=== PATIENT | female | born 1955 | race Caucasian/White ===

== ENCOUNTER 2018-08-23 18:05 | Inpatient (IN) ==
[2018-08-23] MEDS ORDERED: Naloxone 0.4 MG/ML INJ IVP PRN (21:51)
[2018-08-23] MEDS ORDERED: Nitroglycerin 0.4 MG TAB.SUBL SL PRN (21:57)
[2018-08-23] MEDS ORDERED: 0.9 % Sodium Chloride 1,000 ML IVC SCH (22:00)
[2018-08-23 22:20] LABS: Basophils % 0.1 %; Hematocrit 40.7 % (35.3-44.9); Immature Granulocytes % 0.5 % (0-4); Lymphocytes % 5.6 %; Mean Corpuscular HGB Conc 31.9 g/dL (31.6-35.5); Mean Corpuscular Hemoglobin 30.2 pg (28.0-33.3); Mean Corpuscular Volume 94.7 fL (83.0-100.0); Mean Platelet Volume 11.3 fL (9.4-12.4); Monocytes % 0.1 %; Neutrophils # 16.8 K/mcL (1.6-8.9); Platelet Count 280 K/mcL (140-400); Red Cell Distribution Width 13.6 % (11.5-14.5); Segmented Neutrophils % 93.7 %
[2018-08-23 22:25] LABS: Heparin anti-factor XA UFH 0.16 IU/mL (0.30-0.70)
[2018-08-23] MEDS ORDERED: *HR* OxyCODONE/APAP 7.5/325 TABLET PO ONE (22:27)
--- NOTE | 2018-08-23 22:32 | Internal Med History&Physical ---
<Delmer Mancini - Last Filed: 08/23/18 23:56> Date of Encounter: 08/23/18 Time of Encounter: 10:00 Internal Medicine - H&P: HPI Chief complaint: Chest pain Admitted From: Hospital to Hospital Transfer Plans for Post Hospital Care: Home History of present illness: Ms. Garcia is a 62 year old female with history of COPD, hypertension, kidney cancer, hyperlipidemia, CAD status post angioplasty 2, chronic pain who presents to [facility] from [facility] due to chest pain. The patient states that she had chest pain at approximately 11:30 PM yesterday and lasted for approximately 2 hours. The patient was sitting on the toilet attempting have a bowel movement when the pain started. The pain was 10 out of 10 in intensity, left-sided and had radiation to the right neck and bilateral arms. In addition of this, the patient states that she had some numbness in her face associated with this as well. This pain was constant and unremitting. She denies any shortness of breath or palpitations associated with this, and also had no diaphoresis. She did attempt to take her in this time and did take 3 doses but this was not helpful. Nothing made this pain worse. She did move to the bathtub to try and take a bath which was not helpful, but she was able to lay in her bed shortly after which she felt was helpful. The patient has had cardiac history in the past requiring stents, however she said this felt worse than those times. Historically she has not had significant chest pain associated with her cardiac symptoms. Significantly, the patient has had a recent history of hematochezia which has been significant. She said that she was having abdominal cramping and pain and felt that maybe she was developing constipation so she took a laxative. She said that when she attempted to use the bathroom she had significant bright red blood per rectum in the toilet bowl which has been a constant occurrence. She says that she is being worked up by her primary care provider for this at this time. In addition, the patient says that she was recently seen by primary care for a cough with sputum production at which time she was given an antibiotic and prednisone for 1 week. She has no other acute complaints at this time. In the ED at [facility], the patient received labs which demonstrated potassium 4.9, serum creatinine 3.69, troponin 2.8 followed by 2.9. Her WBC was 19.9, hemoglobin 15.3. EKG was not significant for any acute ischemic changes. At that time she was also found to have a blood pressure of 60/40 and received 2 bags of saline which did improve her blood pressure prior to transfer. The patient was diagnosed with an STEMI and was placed on heparin drip and transferred to [facility] for further management. Family Hx noncontributory Past Med Surg Social Fam HX - Past Medical History Medical history: COPD, hypertension, myocardial infarction, osteoporosis, renal disease Psychiatric history: depression - Past Surgical History Surgical History: angioplasty/stent, hysterectomy Additional surgical history: LEFT NEPHRECTOMY - Social History Smoking Status: Current every day smoker Packs per day: 1 Smokeless Tobacco Status: No Alcohol use: none Drug use: none Internal Medicine - H&P: Meds 3 Allergy/AdvReac Type Severity Reaction Status Date / Time acetaminophen Allergy Hives Verified 08/23/18 22:25 [From Lorcet (hydrocodone)] hydrocodone Allergy Hives Verified 08/23/18 22:25 [From Lorcet (hydrocodone)] Iodinated Contrast- Oral and Allergy Difficulty Verified 08/23/18 22:25 IV Dye Breathing meperidine [From Demerol] Allergy Gastrointestinal Verified 08/23/18 22:25 Upset Midodrine Allergy Hives Verified 08/23/18 22:25 morphine Allergy Hives Verified 08/23/18 22:25 Penicillins Allergy Hives Verified 08/23/18 22:25 pseudoephedrine Allergy Hives Verified 08/23/18 22:25 [From Sudafed] sertraline [From Zoloft] Allergy Hives Verified 08/23/18 22:25 tramadol [From Ultram] Allergy Hives Verified 08/23/18 22:25 adhesive tape AdvReac Rash Verified 08/23/18 22:25 All Systems PM: A 10-system review of systems was performed and is negative for pertinent findings except as documented above in the HPI. Review of systems: Constitutional: Denies fevers, chills, weight loss, generalized fatigue Head/Neck: Denies UNDERWOOD, neck stiffness EENT: Denies vision changes/blurriness, rhinorrhea, congestion, sore throat CVS: Admits to chest pain. Denies palpitations, dyspnea on exertion, orthopnea , PND Pulm: Admits to chronic SOB, Cough, sputum production. GI: Admits to Hematochezia, adominal cramping. Denies nausea, vomiting, diarrhea , constipation, melena, hematemasis. : Denies dysuria, increased frequency, urgency, hematuria Heme: Denies ease of bleeding or bruising MSK: Admits to leg cramping. Denies joint pain, limited ROM. Skin: Denies rashes, ulcers, color changes Neuro: Denies UNDERWOOD, paresthesias, focal deficits, ataxia - Constitutional Vitals: Temp Pulse Resp BP Pulse Ox 98.1 F 93 20 90/81 94 08/23/18 21:20 08/23/18 21:20 08/23/18 21:20 08/23/18 21:20 08/23/18 21:20 Exam: Gen: Vitals noted. No acute distress. HEENT: Normocephalic, atraumatic Neck: Supple. No adenopathy. Cardiac: RRR, no murmur, +S1/S2 Pulmonary: Diffuse wheezes are heard, poor inspiratory effort. No superimposed rales. Abdomen: soft, nontender, no guarding Back: Nontender throughout. MSK: ROM intact, no joint swelling noted Extremities: no BLE edema, nontender calf, no cyanosis or clubbing Neuro: moves all extremities, no focal deficits. A&Ox3 Psych: Appropriate mood and behavior Internal Med - H&P Results - Labs CBC & Chem 7: 08/23/18 22:09 08/23/18 22:09 Labs: Short CBC 08/23/18 Range/Units 22:09 WBC 17.9 H (4.3-11.1) K/mcL Hgb 13.0 (11.5-15.4) g/dL Hct 40.7 (35.3-44.9) % Plt Count 280 (140-400) K/mcL Neutrophils # 16.8 H (1.6-8.9) K/mcL - Assessment and plan (1) NSTEMI (non-ST elevated myocardial infarction) Current Visit: Yes Status: Acute Assessment and plan: NSTEMI Presents with atypical chest pain unrelieved by nitroglycerin, elevated troponin 2.2 -> 2.4 -> 1.4 EKG does not demonstrate any dynamic ischemic changes Patient does have history of CAD status post 2 stents in 2004 She is currently on aspirin and Plavix 75 mg Currently not having any chest pain Plan -Continue Heparin drip -Spoke to watch crystal grinder, Dr. Cline, who recommended Brillinta load at 180mg, ASA, Metoprolol 12.5 BID and LHC in the AM -Echo in the AM -NPO at Midnight -Continuous cardiac monitoring (2) JEFF (acute kidney injury) Current Visit: Yes Status: Acute Assessment and plan: Acute kidney injury in solitary left kidney, Serum creatinine 3.69 -> 2.4 The patient states that she has no known history of elevated serum creatinine Says she continues to make urine, no urinary symptoms She did recieve 2L fluid in the ER We will continue maintenance fluids at this time, monitor BMP Consider nephrology consult in AM (3) COPD (chronic obstructive pulmonary disease) Current Visit: No Status: Chronic Assessment and plan: COPD without acute exacerbation We will continue patient's home meds Qualifiers: COPD type: chronic bronchitis Chronic bronchitis type: simple Qualified Code(s): J41.0 - Simple chronic bronchitis (4) Leukocytosis Current Visit: Yes Status: Acute Assessment and plan: Leukocytosis, etiology unknown No evidence of infection at this time Recently received prednisone for COPD exacerbation We will continue to monitor Qualifiers: Leukocytosis type: leukemoid reaction Qualified Code(s): D72.823 - Leukemoid reaction (5) DVT prophylaxis Current Visit: Yes Status: Acute Assessment and plan: On Heparin drip for NSTEMI - Time Spent With Patient Total time spent is greater than 50% in coordination of care (as documented) at patient's floor/unit and/or counseling patient: <MarylevoliveRosemary - Last Filed: 08/24/18 07:11> Date of Encounter: 08/23/18 Time of Encounter: 21:00 Internal Medicine - H&P: HPI History of present illness: Ms. Garcia is a 62 year old female All Systems PM: A 10-system review of systems was performed and is negative for pertinent findings except as documented above in the HPI. - Constitutional Vitals: Temp Pulse Resp BP Pulse Ox 97.9 F 97 22 123/74 94 08/24/18 06:56 08/24/18 06:56 08/24/18 06:56 08/24/18 06:56 08/24/18 06:56 Internal Med - H&P Results - Labs CBC & Chem 7: 08/23/18 22:09 08/23/18 22:09 Labs: Short CBC 08/23/18 Range/Units 22:09 WBC 17.9 H (4.3-11.1) K/mcL Hgb 13.0 (11.5-15.4) g/dL Hct 40.7 (35.3-44.9) % Plt Count 280 (140-400) K/mcL Neutrophils # 16.8 H (1.6-8.9) K/mcL BMP 08/23/18 22:09 Sodium 133 L Potassium 4.4 Chloride 104 Carbon Dioxide 17 L BUN 35 H Creatinine 2.41 H Glucose 205 H Calcium 8.5 L Cardiac Enzymes 08/23/18 08/24/18 Range/Units 22:09 06:14 Troponin I 1.45 H* 1.22 H* (< 0.04) ng/mL Liver Function 08/23/18 Range/Units 22:09 Total Bilirubin 0.5 (0.3-1.0) mg/dL AST 23 (13-39) Units/L ALT 12 (7-52) Units/L Alkaline Phosphatase 70 (34-104) Units/L Albumin 3.8 (3.5-5.7) g/dL - Impressions ITS Impressions Chest X-Ray 08/23/18 22:32 IMPRESSION: 1. Bibasilar pulmonary opacities are most concerning for atelectasis. Early pneumonia could have similar appearance. Recommend radiographic follow-up to complete resolution. 2. Borderline enlarged cardiomediastinal silhouette. D/ / Shola Tena MD / Shola Tena MD Interpreting Provider: Shola Tena MD - Assessment and plan (1) NSTEMI (non-ST elevated myocardial infarction) Current Visit: Yes Status: Acute (2) JEFF (acute kidney injury) Current Visit: Yes Status: Acute (3) COPD (chronic obstructive pulmonary disease) Current Visit: No Status: Chronic Qualifiers: COPD type: chronic bronchitis Chronic bronchitis type: simple Qualified Code(s): J41.0 - Simple chronic bronchitis (4) Leukocytosis Current Visit: Yes Status: Acute Qualifiers: Leukocytosis type: leukemoid reaction Qualified Code(s): D72.823 - Leukemoid reaction (5) DVT prophylaxis Current Visit: Yes Status: Acute - Time Spent With Patient Total time spent is greater than 50% in coordination of care (as documented) at patient's floor/unit and/or counseling patient: - Attending Attestation Patient seen and examined. Case discussed with resident. Agree with assessment and plan. Cardiology consulted with recommendation to load patient with purulent. We will monitor H&H for signs of bleed given patient's history.
[2018-08-23 22:44] LABS: Albumin 3.8 g/dL (3.5-5.7); Albumin/Globulin Ratio 1.5 (1.1-2.2); Bilirubin,Total 0.5 mg/dL (0.3-1.0); Calcium 8.5 mg/dL (8.6-10.3); Globulin 2.6 g/dL (2.4-3.5); Magnesium 1.7 mg/dL (1.6-2.6); Potassium 4.4 mEq/L (3.5-5.1); Total Protein 6.4 g/dL (6.4-8.9)
[2018-08-23 22:47] LABS: Troponin I 1.45 ng/mL (< 0.04)
[2018-08-23] MEDS ORDERED: Heparin 1,000 UNITS/500 mL IV.SOLN IVC ONE (22:51)
[2018-08-23] MEDS: 0.9 % Sodium Chloride 1,000 ML IVC SCH (22:53)
[2018-08-23] MEDS ORDERED: *HR* Heparin 5,000 UNIT/ML VIAL IVP PRN ×2 (23:05)
[2018-08-23] MEDS ORDERED: *HR* Heparin 5,000 UNIT/ML VIAL IVP ONE (23:05)
[2018-08-23] MEDS ORDERED: *HR* Ticagrelor 90 MG TABLET PO ONE (23:11)
[2018-08-23] MEDS ORDERED: Heparin 25,000 UNIT/500 ML D5W 25,000 UNIT/500 ML BAG IVC SCH (23:15)
[2018-08-23] MEDS ORDERED: Ipratropium/Albuterol Neb 3 ML IH PRN (23:34)
[2018-08-24] MEDS ORDERED: Benzonatate 100 MG CAPSULE PO PRN ×2 (04:12→15:15)
[2018-08-24] MEDS ORDERED: *HR* OxyCODONE/APAP 7.5/325 TABLET PO ONE (04:21)
[2018-08-24] MEDS: 0.9 % Sodium Chloride 1,000 ML IVC SCH (07:10)
[2018-08-24] MEDS ORDERED: Ipratropium/Albuterol Neb 3 ML IH PRN (07:54)
[2018-08-24] MEDS ORDERED: 0.9 % Sodium Chloride 1,000 ML IVC SCH (07:54)
[2018-08-24] MEDS ORDERED: Nitroglycerin 0.4 MG TAB.SUBL SL PRN (07:54)
[2018-08-24] MEDS ORDERED: Naloxone 0.4 MG/ML INJ IVP PRN (07:54)
[2018-08-24] MEDS ORDERED: *HR* Heparin 5,000 UNIT/ML VIAL IVP PRN ×2 (07:54)
--- NOTE | 2018-08-24 09:20 | Cardiology Consult Note ---
Date of Encounter: 08/24/18 Time of Encounter: 08:45 Assessment and Plan (1) NSTEMI (non-ST elevated myocardial infarction) Current Visit: Yes Status: Acute Elevated troponin up to 2.99 at [facility] and trending down. Currently pain free. H/o PCI. Left heart catheterization in 09/2013: Left main normal. LAD proximal 20% ISR. Circumflex normal. OM1 normal. RCA proximal 70% stenosis (DEANNE placed). On heparin gtt started last night. Recommend asa, statin, and bb. She was not taking GDMT for CAD at home. Unfortunately she continues to smoke. [facility] is recommended for further evaluation once stable from JEFF standpoint. LHC R /B/A including ANNE discussed and she is considering. Recommend nephrology consult. Check TTE. (2) JEFF (acute kidney injury) Current Visit: Yes Status: Acute Scr up to 3.6 (per H&P) at outside facility and 2.41. H/o renal cancer s/p nephrectomy. Recommend nephrology consult and ordering records from her PCP. (3) Leukocytosis Current Visit: Yes Status: Acute Noted leukocytosis, likely secondary to steroid use. Qualifiers: Leukocytosis type: unspecified Qualified Code(s): D72.829 - Elevated white blood cell count, unspecified Discussion w patient/family: The assessment and plan as outlined above was discussed with the patient and/or family members who expressed understanding and agreement. All questions were answered. Thank you for involving us in the care of your patient. Please call with any questions. History of Present Illness Consult date: 08/24/18 Requesting physician: Delmer Mancini Consult reason: NSTEMI Chief complaint: Chest pain with bowel movement History of present illness: Ms. Garcia is a 62 year old female with past medical history CAD s/p PCI in 2004 to the LAD and RCA in 2012, renal cancer s/p nephrectomy, CKD, COPD, HTN, HLD, and current tobacco use. She presents with c/o midsternal chest pain radiating to her bilateral arms and neck. C/o a pulling feeling in her right face. Family said she was slurring her speech. She took NTG with no relief. States that she took a warm bath with no relief. She was evaluated at [facility] and found to have elevated troponin at 2.99. It is also noted her initial blood pressure was 64/ 38 and slowly came up with IV fluid. Scr elevated up to 3.6, EKG unchanged from prior EKG. Baseline kidney function unknown, no prior record. On my exam she is pain free. She tolerated heparin gtt overnight with no recurrent bloody stool. She is noted to have a large hemorrhoid per nursing staff. Past Med Surg Social Fam HX - Past Medical History Medical history: COPD, coronary artery disease, hypertension, myocardial infarction, osteoporosis, renal disease Psychiatric history: depression - Past Surgical History Surgical History: angioplasty/stent, hysterectomy Additional surgical history: LEFT NEPHRECTOMY - Social History Smoking Status: Current every day smoker Packs per day: 1 Smokeless Tobacco Status: No Alcohol use: none Drug use: none Medications and Allergies 3 Allergy/AdvReac Type Severity Reaction Status Date / Time acetaminophen Allergy Hives Verified 08/23/18 22:25 [From Lorcet (hydrocodone)] hydrocodone Allergy Hives Verified 08/23/18 22:25 [From Lorcet (hydrocodone)] Iodinated Contrast- Oral and Allergy Difficulty Verified 08/23/18 22:25 IV Dye Breathing meperidine [From Demerol] Allergy Gastrointestinal Verified 08/23/18 22:25 Upset Midodrine Allergy Hives Verified 08/23/18 22:25 morphine Allergy Hives Verified 08/23/18 22:25 Penicillins Allergy Hives Verified 08/23/18 22:25 pseudoephedrine Allergy Hives Verified 08/23/18 22:25 [From Sudafed] sertraline [From Zoloft] Allergy Hives Verified 08/23/18 22:25 tramadol [From Ultram] Allergy Hives Verified 08/23/18 22:25 adhesive tape AdvReac Rash Verified 08/23/18 22:25 All Systems Review: The remainder of the systems were reviewed and are negative Physical Examination Vital Signs, Last 4 Hours Temp Pulse Resp BP Pulse Ox 08/24/18 06:56 97.9 F 97 22 123/74 94 General: Conversant, No Apparent Distress HEENT: Atraumatic, Normocephaly, Mucus Membranes Moist Neck: No JVD, Normal carotid pulses Cardiac: Reg Rate and Rhythm, Normal S1 and S2, No Murmur Lungs: Normal Breath Sounds, No Wheeze, Rales, Rhonchi Neuro: Alert and responsive, No focal deficits noted Abdomen: Soft, Non-Tender Skin: No rashes noted on visualized skin Musculoskeletal: No Chest Wall Tenderness Extremities: No Clubbing, No Cyanosis, No Edema, Normal Pulses Results 08/23/18 22:09 08/23/18 22:09 Lab Results 08/23/18 08/23/18 08/23/18 22:09 22:09 22:09 WBC 17.9 H Hgb 13.0 Hct 40.7 Plt Count 280 INR 1.0 Sodium 133 L Potassium 4.4 Chloride 104 Carbon Dioxide 17 L BUN 35 H Creatinine 2.41 H Glucose 205 H Calcium 8.5 L Magnesium 1.7 Total Bilirubin 0.5 AST 23 ALT 12 Alkaline Phosphatase 70 Troponin I 1.45 H* B-Natriuretic Peptide 08/23/18 08/24/18 22:09 06:14 WBC Hgb Hct Plt Count INR Sodium Potassium Chloride Carbon Dioxide BUN Creatinine Glucose Calcium Magnesium Total Bilirubin AST ALT Alkaline Phosphatase Troponin I 1.22 H* B-Natriuretic Peptide 30 - Imaging and Cardiology Chest Xray: report reviewed Echo: pending - EKG Interpretation EKG results cardiology: personally reviewed Consult Discharge Plan - Plan Referrals: Luis Felipe Huerta DO [Primary Care Provider] -
--- NOTE | 2018-08-24 09:39 | Internal Med Progress Note ---
<Jaycob Spence - Last Filed: 08/24/18 10:36> Hospitalist Progress Note - Encounter Date of Encounter: 08/24/18 Time of Encounter: 10:36 - Exam Vitals: Temp Pulse Resp BP Pulse Ox 97.9 F 97 22 123/74 94 08/24/18 06:56 08/24/18 06:56 08/24/18 06:56 08/24/18 06:56 08/24/18 06:56 Exam: Constitutional: well nourished, well developed female. no acute distress Head: Normocephalic, atraumatic Eyes: PERRL, EOMI, conjunctiva pink, sclera anicteric Neck: Supple, trachea midline, no lymphadenopathy Lungs: Diffuse wheezes. Nonlabored breathing. No rales, or rhonchi noted. Cardiac: RRR. No murmurs, clicks, or rubs noted. GI: Abdomen soft, mildly distended, nontender. Normoactive bowel sounds Extremities: Warm, radial pulses palpable and symmetrical. No cyanosis, pedal edema, or calf tenderness. Neuro: Alert and oriented 3. No focal deficits. Normal speech. Skin: Warm, dry, and intact. - Assessment and Plan (1) NSTEMI (non-ST elevated myocardial infarction) Current Visit: Yes Status: Acute (2) JEFF (acute kidney injury) Current Visit: Yes Status: Acute (3) COPD (chronic obstructive pulmonary disease) Current Visit: No Status: Chronic (4) Leukocytosis Current Visit: Yes Status: Acute (5) DVT prophylaxis Current Visit: Yes Status: Acute - Time Spent with Patient Total time spent is greater than 50% in coordination of care (as documented) at patient's floor/unit and/or counseling patient: Internal Medicine: Result - Labs CBC & Chem 7: 08/24/18 09:25 08/24/18 09:25 Labs: Short CBC 08/23/18 Range/Units 22:09 WBC 17.9 H (4.3-11.1) K/mcL Hgb 13.0 (11.5-15.4) g/dL Hct 40.7 (35.3-44.9) % Plt Count 280 (140-400) K/mcL Neutrophils # 16.8 H (1.6-8.9) K/mcL BMP 08/23/18 22:09 Sodium 133 L Potassium 4.4 Chloride 104 Carbon Dioxide 17 L BUN 35 H Creatinine 2.41 H Glucose 205 H Calcium 8.5 L Cardiac Enzymes 08/23/18 08/24/18 Range/Units 22:09 06:14 Troponin I 1.45 H* 1.22 H* (< 0.04) ng/mL Liver Function 08/23/18 Range/Units 22:09 Total Bilirubin 0.5 (0.3-1.0) mg/dL AST 23 (13-39) Units/L ALT 12 (7-52) Units/L Alkaline Phosphatase 70 (34-104) Units/L Albumin 3.8 (3.5-5.7) g/dL - ABG Interpretation ABG results: PT/INR, D-dimer PT 11.0 Seconds (9.4-12.1) 08/23/18 22:09 - Impressions Impressions Chest X-Ray 08/23/18 22:32 IMPRESSION: 1. Bibasilar pulmonary opacities are most concerning for atelectasis. Early pneumonia could have similar appearance. Recommend radiographic follow-up to complete resolution. 2. Borderline enlarged cardiomediastinal silhouette. D/ / Shola Tena MD / Shola Tena MD Interpreting Provider: Shola Tena MD Consult Discharge Plan - Plan Referrals: Luis Felipe Huerta DO [Primary Care Provider] - <Nitin Rocha - Last Filed: 08/24/18 13:19> Hospitalist Progress Note - Encounter Date of Encounter: 08/24/18 - Exam Vitals: Temp Pulse Resp BP Pulse Ox 97.9 F 98 21 146/95 94 08/24/18 06:56 08/24/18 11:27 08/24/18 11:27 08/24/18 11:27 08/24/18 06:56 - Assessment and Plan (1) NSTEMI (non-ST elevated myocardial infarction) Current Visit: Yes Status: Acute (2) JEFF (acute kidney injury) Current Visit: Yes Status: Acute (3) COPD (chronic obstructive pulmonary disease) Current Visit: No Status: Chronic (4) Leukocytosis Current Visit: Yes Status: Acute (5) DVT prophylaxis Current Visit: Yes Status: Acute - Time Spent with Patient Total time spent is greater than 50% in coordination of care (as documented) at patient's floor/unit and/or counseling patient: Internal Medicine: Result - Labs CBC & Chem 7: 08/24/18 09:25 08/24/18 09:25 Labs: Short CBC 08/23/18 08/24/18 Range/Units 22:09 09:25 WBC 17.9 H 16.8 H (4.3-11.1) K/mcL Hgb 13.0 12.4 (11.5-15.4) g/dL Hct 40.7 40.0 (35.3-44.9) % Plt Count 280 279 (140-400) K/mcL Neutrophils # 16.8 H 15.3 H (1.6-8.9) K/mcL BMP 08/23/18 08/24/18 22:09 09:25 Sodium 133 L 140 Potassium 4.4 4.8 Chloride 104 109 H Carbon Dioxide 17 L 22 L BUN 35 H 29 H Creatinine 2.41 H 1.72 H Glucose 205 H 136 H Calcium 8.5 L 8.6 Cardiac Enzymes 08/23/18 08/24/18 Range/Units 22:09 06:14 Troponin I 1.45 H* 1.22 H* (< 0.04) ng/mL Liver Function 08/23/18 Range/Units 22:09 Total Bilirubin 0.5 (0.3-1.0) mg/dL AST 23 (13-39) Units/L ALT 12 (7-52) Units/L Alkaline Phosphatase 70 (34-104) Units/L Albumin 3.8 (3.5-5.7) g/dL - ABG Interpretation ABG results: PT/INR, D-dimer PT 11.0 Seconds (9.4-12.1) 08/23/18 22:09 - Impressions Impressions Chest X-Ray 08/23/18 22:32 IMPRESSION: 1. Bibasilar pulmonary opacities are most concerning for atelectasis. Early pneumonia could have similar appearance. Recommend radiographic follow-up to complete resolution. 2. Borderline enlarged cardiomediastinal silhouette. D/ / Shola Tena MD / Shola Tena MD Interpreting Provider: Shola Tena MD - Attending Attestation I performed an independent interview and exam of this patient. I agree with the findings, assessment, and plan of Dr. Spence, internal medicine unpaid intern. This is a 62-year-old female with a history of urinary disease status post PTCI, renal cancer status post nephrectomy now with a single kidney, COPD, chronic kidney disease, hypertension. Ongoing smoker. Patient was admitted with a non- STEMI. She is also noted to be in acute renal failure for which he is receiving IV fluids and we are holding nephrotoxins. Hemodynamically stable and chest pain-free. She is on a heparin drip as well as a statin, aspirin and beta willie. We are awaiting improvement in her renal function prior to performing left heart catheterization. Nephrology has been consulted. Cardiology input is appreciated. Gen NAD, AAOx3 Neck supple Lung ctab ht rrr abd soft +BS, NT Ext no edema Neuro nonfocal <Jaycob Spence A - Last Filed: 08/24/18 10:36> (3) COPD (chronic obstructive pulmonary disease) Qualifiers: COPD type: chronic bronchitis Chronic bronchitis type: simple Qualified Code (s): J41.0 - Simple chronic bronchitis (4) Leukocytosis Qualifiers: Leukocytosis type: unspecified Qualified Code(s): D72.829 - Elevated white blood cell count, unspecified <Nitin Rocha R - Last Filed: 08/24/18 13:19> (3) COPD (chronic obstructive pulmonary disease) Qualifiers: COPD type: chronic bronchitis Chronic bronchitis type: simple Qualified Code (s): J41.0 - Simple chronic bronchitis (4) Leukocytosis Qualifiers: Leukocytosis type: unspecified Qualified Code(s): D72.829 - Elevated white blood cell count, unspecified
[2018-08-24 09:43] LABS: Basophils % 0.1 %; Hemoglobin 12.4 g/dL (11.5-15.4); Immature Granulocytes % 0.8 % (0-4); Lymphocytes # 0.8 K/mcL (0.6-4.6); Lymphocytes % 4.9 %; Mean Corpuscular Volume 96.6 fL (83.0-100.0); Mean Platelet Volume 11.3 fL (9.4-12.4); Monocytes # 0.5 K/mcL (0.0-1.3); Monocytes % 3.1 %; Neutrophils # 15.3 K/mcL (1.6-8.9); Platelet Count 279 K/mcL (140-400); Red Blood Count 4.14 M/mcL (3.82-4.97); Red Cell Distribution Width 13.9 % (11.5-14.5); Segmented Neutrophils % 91.1 %
[2018-08-24 09:57] LABS: Calcium 8.6 mg/dL (8.6-10.3); Potassium 4.8 mEq/L (3.5-5.1)
--- NOTE | 2018-08-24 15:03 | Nephrology Consult Note ---
<Katerina Guillory - Last Filed: 08/24/18 15:01> Date of Encounter: 08/24/18 Time of Encounter: 15:02 Assessment and Plan (1) JEFF (acute kidney injury) Status: Acute JEFF vs CKD, unsure of baseline, awaiting baseline labs from PCP. Avoid nephrotoxins. Continue IVF. If SCR and GFR improve, may possibley do LHC tomorrow, if labs worsen we will hold off. Will order mucomyst to start in AM. Serum and urine studies ordered. (2) NSTEMI (non-ST elevated myocardial infarction) Status: Acute Per cardio. (3) COPD (chronic obstructive pulmonary disease) Status: Chronic Per primary, Qualifiers: COPD type: chronic bronchitis Chronic bronchitis type: simple Qualified Code(s): J41.0 - Simple chronic bronchitis History of Present Illness - Reason for Consult Consult date: 08/24/18 Acute Kidney Injury, Chronic Kidney Disease - Chief Complaint chest pain - History of Present Illness Ms. Garcia is a 62 year old female who presented to ED with CP on Friday08/22/18. She took 3 doses of Nitro a home without relief. PMH: COPD, hypertension, solitary kidney, hyperlipidemia, CAD status post angioplasty. Pt does admit Dr. Huerta her PCP does trend GFR, but she is unsure where it is at this time. A request has been made to obtain baseline records. Scr has improved at 1.75 and GFR improved at 30. She does see a [facility] but she does not want to go back there. She does want to establish with [facility] on discharge. Pt admits to bright red bleeding from rectum, which "she does time to time". Denies bleeding now. H/H stable. Since baseline is unknown, I did order urine studies and a Retroperitoneal US. She lives at home with her son. She is 1/2 ppd smoker. No ETOH or illicit drug use. Past Med Surg Social Fam HX - Past Medical History Medical history: COPD, coronary artery disease, hypertension, myocardial infarction, osteoporosis, renal disease Psychiatric history: depression - Past Surgical History Surgical History: angioplasty/stent, hysterectomy Additional surgical history: LEFT NEPHRECTOMY - Social History Smoking Status: Current every day smoker Packs per day: 1 Smokeless Tobacco Status: No Alcohol use: none Drug use: none Medications and Allergies RX: Aspirin [Adult Aspirin] 81 mg PO DAILY 08/24/18 [History] RX: DULoxetine [Cymbalta] 30 mg PO BID 08/24/18 [History] RX: Fluticasone/Vilanterol [Breo Ellipta 100-25 Mcg INH] 1 puff IH DAILY 08/24/18 [History] RX: Gabapentin [Neurontin] 600 mg PO TID 08/24/18 [History] RX: Lisinopril [Zestril] 20 mg PO DAILY 08/24/18 [History] RX: Nitroglycerin [Nitrostat] 0.4 mg SL Q5M PRN 08/24/18 [History] RX: Pantoprazole Sodium [Protonix] 40 mg PO DAILY 08/24/18 [History] RX: Tizanidine HCl 4 mg PO TID 08/24/18 [History] RX: diazePAM [Valium] 10 mg PO BID 08/24/18 [History] Oxycodone HCl/Acetaminophen [Percocet 5-325 mg Tablet] 1 each PO 1-2XD PRN 2 Days #5 tablet 08/27/18 [Rx] RX: Isosorbide MONOnitrate (24 HR) [Imdur] 30 mg PO DAILY 30 Days #30 tab.er.24h 08/27/18 [Rx] RX: amLODIPine [Norvasc] 5 mg PO DAILY 30 Days #30 tablet 08/27/18 [Rx] Allergy/AdvReac Type Severity Reaction Status Date / Time acetaminophen Allergy Hives Verified 08/23/18 22:25 [From Lorcet (hydrocodone)] hydrocodone Allergy Hives Verified 08/23/18 22:25 [From Lorcet (hydrocodone)] Iodinated Contrast- Oral and Allergy Difficulty Verified 08/23/18 22:25 IV Dye Breathing meperidine [From Demerol] Allergy Gastrointestinal Verified 08/23/18 22:25 Upset Midodrine Allergy Hives Verified 08/23/18 22:25 morphine Allergy Hives Verified 08/23/18 22:25 Penicillins Allergy Hives Verified 08/23/18 22:25 pseudoephedrine Allergy Hives Verified 08/23/18 22:25 [From Sudafed] sertraline [From Zoloft] Allergy Hives Verified 08/23/18 22:25 tramadol [From Ultram] Allergy Hives Verified 08/23/18 22:25 adhesive tape AdvReac Rash Verified 08/23/18 22:25 Review of Systems All Systems review (narrative): The remainder of the systems are negative. Constitutional: fatigue, no chills, no fever(s), no night sweats Cardiovascular: no chest pain (at time of exam. ), no diaphoresis, no dyspnea, no orthopnea, no palpitations Respiratory: no cough, no hemoptysis Gastrointestinal: change in bowel habits, diarrhea, hematochezia, no nausea, no vomiting Exam - Vital Signs Vital signs: Initial Vital Signs Temp Pulse Resp BP Pulse Ox 98.1 F 93 20 90/81 94 08/23/18 21:20 08/23/18 21:20 08/23/18 21:20 08/23/18 21:20 08/23/18 21:20 Vital Signs - Last 8 Hours Temp Pulse Resp BP Pulse Ox 08/24/18 14:27 98.3 F 103 18 140/96 96 08/24/18 11:27 98 21 146/95 Intake and Output 08/23/18 08/24/18 08/24/18 23:59 07:59 15:59 Intake Total 44 / 44 1175 / 1175 0 / 0 Output Total 800 / 800 Balance 44 / 44 1175 / 1175 -800 / -800 Intake: IV Fluids 44 / 44 1175 / 1175 0 / 0 0.9 % Sodium Chloride 1,000 ML 44 / 44 1000 / 1000 @ 125 mls/hr IVC .Q8H [facility] Rx#: [id number] Heparin 25,000 UNIT/500 ML D5W 175 / 175 0 / 0 25,000 unit In 500 ml @ 14 UNIT /KG/HR 18.144 mls/hr IVC .Q24H [facility] Rx#:[id number] Output: Urine 800 / 800 Other: Weight 64.8 kg Blood Glucose* 191 - General Appearance General appearance: well-developed, well-nourished EENT: ATNC, hearing intact, vision intact Neck: supple Respiratory: clear Cardiology: no edema, normal S1, normal S2 Gastrointestinal: normoactive bowel sounds, no tenderness, no guarding Integumentary: no rash, warm and dry Neurologic: alert and oriented x3 Psychiatric: mood/affect appropriate, cooperative Results - Lab Results 08/24/18 09:25 08/24/18 09:25 Most recent lab results Calcium 8.6 mg/dL (8.6-10.3) 08/24/18 09:25 Magnesium 1.7 mg/dL (1.6-2.6) 08/23/18 22:09 Consult Discharge Plan - Plan Instructions: Amlodipine (By mouth), Isosorbide Mononitrate (By mouth), Myocardial Infarction (DC), Left Heart Catheterization (DC) Referrals: Luis Felipe Huerta DO [Primary Care Provider] - 09/02/18 1:30 pm Bryon An DO [Partnered Physician] - Prescriptions: RX: amLODIPine [Norvasc] 5 mg PO DAILY 30 Days #30 tablet RX: Isosorbide MONOnitrate (24 HR) [Imdur] 30 mg PO DAILY 30 Days #30 tab.er.24h Oxycodone HCl/Acetaminophen [Percocet 5-325 mg Tablet] 1 each PO 1-2XD PRN 2 Days #5 tablet PRN Reason: Pain <Gentry Del Angel - Last Filed: 09/17/18 08:59> Assessment and Plan (1) NSTEMI (non-ST elevated myocardial infarction) Status: Acute (2) JEFF (acute kidney injury) Status: Resolved (3) COPD (chronic obstructive pulmonary disease) Status: Chronic Qualifiers: COPD type: chronic bronchitis Chronic bronchitis type: simple Qualified Code(s): J41.0 - Simple chronic bronchitis Exam - Vital Signs Vital signs: Initial Vital Signs Temp Pulse Resp BP Pulse Ox 98.1 F 93 20 90/81 94 08/23/18 21:20 08/23/18 21:20 08/23/18 21:20 08/23/18 21:20 08/23/18 21:20 Results - Lab Results 08/27/18 05:04 08/27/18 05:04 Most recent lab results Calcium 8.5 mg/dL (8.6-10.3) L 08/27/18 05:04 Magnesium 1.7 mg/dL (1.6-2.6) 08/23/18 22:09 Urine Sodium 95.0 mEq/L 08/24/18 18:00 - Attending Attestation I examined this patient and my medical decision-making was reviewed with the Resident Physician/AQUATIC BIOLOGIST. I agree with the documented findings, disposition and treatment plan as described except to the extent set forth below. In brief; 62 y o female with PMH of HTN, COPD, CAD with known solitary kidney with CKD admitted with chest pain. Renal consulted for renal optimization prior to cardiac workup. Will need to obtain labs from pcp to establish baseline. Pt was previously followed by a local structural manager, Dr Barroso I believe. Exam unremarkable. Given current GFR at 30, will need mucomyst if and when LHC arranged. Pro/cons of iv contrast exposure discussed with pt wishing to proceed if necessary. Will check urine studies.
[2018-08-24] MEDS ORDERED: NON-FORMULARY MEDICATION 1 EACH EACH (Fluticasone/Vilanterol [Breo Ellipta 100-25 Mcg Inh] IH SCH (15:15)
[2018-08-24] MEDS: AMLODI PO SCH (16:34)
[2018-08-24] MEDS: Aspirin Enteric Coated 81 MG Tablet PO SCH (16:34)
[2018-08-24] MEDS: tiZANidine 4 MG TABLET PO SCH ×2 (16:34→20:31)
[2018-08-24 18:18] LABS: Bilirubin,Urine Negative (Negative); Blood,Urine Negative (Negative); Clarity,Urine Clear (Clear); Color,Urine Yellow (Yellow); Glucose,Urine (UA) Normal (Normal); Ketones,Urine Negative (Negative); Leukocyte Esterase,Urine Trace (Negative); Nitrite,Urine Negative (Negative); Protein,Urine Negative (Neg-Trace); Specific Gravity,Urine 1.015 (1.010-1.025); Urobilinogen,Urine Normal (Normal)
[2018-08-24 18:31] LABS: Bacteria,Urine None Seen per hpf (None-Few); Squamous Epithelial Cell,Urine Few per lpf (None-Few); WBC,Urine 0-3 per hpf (0-3)
[2018-08-24] MEDS: diazePAM 10 MG TABLET PO SCH (20:31)
[2018-08-24] MEDS ORDERED: Acetaminophen 325 MG TABLET PO PRN (20:57)
[2018-08-24] MEDS ORDERED: traMADol 50 MG TABLET PO ONE (21:00)
[2018-08-24] MEDS: Budesonide/Formoterol 160/4.5 1 PUFF INH IH SCH (21:43)
[2018-08-25 07:45] LABS: Basophils % 0.3 %; Eosinophils # 0.1 K/mcL (0.0-0.6); Eosinophils % 0.9 %; Hematocrit 37.9 % (35.3-44.9); Hemoglobin 11.7 g/dL (11.5-15.4); Immature Granulocytes % 0.5 % (0-4); Lymphocytes # 3.9 K/mcL (0.6-4.6); Lymphocytes % 24.9 %; Mean Corpuscular HGB Conc 30.9 g/dL (31.6-35.5); Mean Corpuscular Hemoglobin 30.2 pg (28.0-33.3); Mean Corpuscular Volume 97.9 fL (83.0-100.0); Mean Platelet Volume 11.8 fL (9.4-12.4); Monocytes # 0.9 K/mcL (0.0-1.3); Monocytes % 5.9 %; Neutrophils # 10.7 K/mcL (1.6-8.9); Platelet Count 213 K/mcL (140-400); Red Blood Count 3.87 M/mcL (3.82-4.97); Red Cell Distribution Width 14.2 % (11.5-14.5); Segmented Neutrophils % 67.5 %
--- NOTE | 2018-08-25 07:45 | Internal Med Progress Note ---
<Jaycob Spence - Last Filed: 08/25/18 16:00> Hospitalist Progress Note - Encounter Date of Encounter: 08/25/18 Time of Encounter: 10:00 - Subjective Interval History: Ms. Garcia is a 62F is PMH of COPD, HTN, HLD, and CAD who was transferred from [facility] for chest pain. She was found to have an NSTEMI; no EKG changes, but elevated troponins. 2.2 on admission. She has also been experiencing hematochezia with abdominal cramping, but no pain. Pt seen and examined at bedside. States she is no longer experiencing hematochezia. Having normal bowel movements. No fever, chills, chest pain, increased shortness of breath, change in sputum production or character, nausea , or vomiting at this time. Pt was noted to have bradycardia in the 50s, and hypotension with systolic in the 80s. She is not confused and states she just feels a little tired. - Exam Vitals: Temp Pulse Resp BP Pulse Ox 98.0 F 62 14 97/76 97 08/25/18 02:49 08/25/18 02:49 08/25/18 02:49 08/25/18 02:49 08/25/18 02:49 Exam: Constitutional: well nourished, well developed female. no acute distress Head: Normocephalic, atraumatic Eyes: PERRL, EOMI, conjunctiva pink, sclera anicteric Neck: Supple, trachea midline, no lymphadenopathy Lungs: Diffuse wheezes. Nonlabored breathing. No rales, or rhonchi noted. Cardiac: RRR. No murmurs, clicks, or rubs noted. GI: Abdomen soft, mildly distended, nontender. Normoactive bowel sounds Extremities: Warm, radial pulses palpable and symmetrical. No cyanosis, pedal edema, or calf tenderness. Neuro: Alert and oriented 3. No focal deficits. Normal speech. Skin: Warm, dry, and intact. - Assessment and Plan (1) Hypotension Current Visit: Yes Status: Acute Assessment and Plan: BP dropped to systolic in the 80s this morning Pt remained asymptomatic Likely 2/2 cardiogenic shock from NSTEMI Could also be caused by medications Hold Metoprolol Hold home Zanaflex Hold home Valium Decrease Amlodipine to 5mg qd 500mL NS, if tolerated well can give another 500mL (2) NSTEMI (non-ST elevated myocardial infarction) Current Visit: Yes Status: Acute Assessment and Plan: NSTEMI elevated troponins 2.2, 2.4, and 1.4 EKG does not demonstrate any dynamic ischemic changes Patient does have history of CAD status post 2 stents in 2004 She is currently on aspirin and Plavix 75 mg Currently not having any chest pain Echo normal with LVEF 65-70% Cardio is on board, discussed need for LHC and pt is ok from renal standpoint Continue Heparin drip Continue ASA Hold beta-willie with bradycardia and hypotension as above (3) JEFF (acute kidney injury) Current Visit: Yes Status: Acute Assessment and Plan: Acute kidney injury in solitary left kidney, Serum creatinine 3.69 -> 0.93 Says she continues to make urine, no urinary symptoms Likely related to hypovolemia or cardiogenic shock 2/2 NSTEMI Resolved at this time. Will continue to avoid nephrotoxins if possible (4) COPD (chronic obstructive pulmonary disease) Current Visit: No Status: Chronic Assessment and Plan: COPD without acute exacerbation Stable with no tachypnea or labored breathing Continue Symbicort and prn duonebs (5) Leukocytosis Current Visit: Yes Status: Acute Assessment and Plan: Leukocytosis which is improving at 15.8 today No evidence of infection at this time No fevers, no increased cough or sputum production Recently received prednisone for COPD exacerbation Will continue to monitor (6) DVT prophylaxis Current Visit: Yes Status: Acute Assessment and Plan: On Heparin drip for NSTEMI (7) Bradycardia with 51-60 beats per minute Current Visit: Yes Status: Acute Assessment and Plan: HR this AM dropped to 50s Pt was asymptomatic. no confusion Could be 2/2 cardiogenic shock from NSTEMI Hold home metoprolol DVT Prophylaxis: on heparin drip for NSTEMI - Time Spent with Patient Total time spent is greater than 50% in coordination of care (as documented) at patient's floor/unit and/or counseling patient: Internal Medicine: Result - Labs CBC & Chem 7: 08/25/18 07:19 08/25/18 07:19 Labs: Short CBC 08/24/18 Range/Units 09:25 WBC 16.8 H (4.3-11.1) K/mcL Hgb 12.4 (11.5-15.4) g/dL Hct 40.0 (35.3-44.9) % Plt Count 279 (140-400) K/mcL Neutrophils # 15.3 H (1.6-8.9) K/mcL BMP 08/24/18 08/24/18 09:25 14:23 Sodium 140 Potassium 4.8 Chloride 109 H Carbon Dioxide 22 L BUN 29 H Creatinine 1.72 H 1.42 H Glucose 136 H Calcium 8.6 Urine 08/24/18 Range/Units 18:00 Urine Color Yellow (Yellow) Urine Clarity Clear (Clear) Urine pH 6.0 (5.0-8.0) pH Units Ur Specific [place] 1.015 (1.010-1.025) Urine Protein Negative (Neg-Trace) mg/dL Urine Glucose (UA) Normal (Normal) mg/dL - ABG Interpretation ABG results: PT/INR, D-dimer PT 11.0 Seconds (9.4-12.1) 08/23/18 22:09 - Impressions Impressions Retroperitoneum Ultrasound 08/24/18 19:00 IMPRESSION: Status post left nephrectomy. Unremarkable ultrasound appearance of the right kidney and urinary bladder. D/ / Shruti Baxter MD / Shruti Baxter MD Interpreting Provider: Shruti Baxter MD Echocardiogram 08/24/18 22:32 Impressions: LVEF 65-70%. Normal LV chamber size, wall thickness and function. Indeterminate diastolic function. Normal right ventricular structure and function. No evidence of pulmonary hypertension. No significant valvular dysfunction. Left Ventricular Wall Motion: Rest Echo Findings All wall segments showed normal motion. Findings: Study Quality * Technically adequate exam. ECG Findings * Normal sinus rhythm. Left Ventricle * LVEF 65-70%. * Normal LV chamber size, wall thickness and function. * Indeterminate diastolic function. Right Ventricle * Normal right ventricular structure and function. Left Atrium * Normal left atrial size. Right Atrium * Normal right atrial size. Aortic Valve * Aortic valve not well visualized. * No aortic regurgitation. * No aortic stenosis. Mitral Valve * Normal mitral valve structure and function. * No mitral regurgitation. * No mitral stenosis. Tricuspid Valve * Normal tricuspid valve structure and function. * Trace tricuspid regurgitation. * No evidence of pulmonary hypertension. Pulmonic Valve * Pulmonic valve is not well visualized. Aorta * Normally sized aortic root. Pericardium * The pericardium appears normal. IVC * Normal IVC dimensions and inspiratory collapse. Pulmonary Artery * Normal visualized portions of the main pulmonary artery. Consult Discharge Plan - Plan Referrals: Luis Felipe Huerta, [Primary Care Provider] - <AlexandrandreayingAgustin guardado - Last Filed: 08/25/18 17:19> Hospitalist Progress Note - Encounter Date of Encounter: 08/25/18 - Exam Vitals: Temp Pulse Resp BP Pulse Ox 97.6 F 79 16 122/78 96 08/25/18 15:00 08/25/18 15:00 08/25/18 15:00 08/25/18 15:00 08/25/18 15:00 - Assessment and Plan (1) NSTEMI (non-ST elevated myocardial infarction) Current Visit: Yes Status: Acute (2) EJFF (acute kidney injury) Current Visit: Yes Status: Acute (3) COPD (chronic obstructive pulmonary disease) Current Visit: No Status: Chronic (4) Leukocytosis Current Visit: Yes Status: Acute (5) DVT prophylaxis Current Visit: Yes Status: Acute (6) Hypotension Current Visit: Yes Status: Acute (7) Bradycardia with 51-60 beats per minute Current Visit: Yes Status: Acute - Time Spent with Patient Total time spent is greater than 50% in coordination of care (as documented) at patient's floor/unit and/or counseling patient: Internal Medicine: Result - Labs CBC & Chem 7: 08/25/18 07:19 08/25/18 07:19 Labs: Short CBC 08/25/18 Range/Units 07:19 WBC 15.8 H (4.3-11.1) K/mcL Hgb 11.7 (11.5-15.4) g/dL Hct 37.9 (35.3-44.9) % Plt Count 213 (140-400) K/mcL Neutrophils # 10.7 H (1.6-8.9) K/mcL BMP 08/25/18 07:19 Sodium 140 Potassium 4.4 Chloride 111 H Carbon Dioxide 23 BUN 18 Creatinine 0.93 Glucose 84 Calcium 8.8 Urine 08/24/18 Range/Units 18:00 Urine Color Yellow (Yellow) Urine Clarity Clear (Clear) Urine pH 6.0 (5.0-8.0) pH Units Ur Specific [place] 1.015 (1.010-1.025) Urine Protein Negative (Neg-Trace) mg/dL Urine Glucose (UA) Normal (Normal) mg/dL - ABG Interpretation ABG results: PT/INR, D-dimer PT 11.0 Seconds (9.4-12.1) 08/23/18 22:09 - Impressions Impressions Retroperitoneum Ultrasound 08/24/18 19:00 IMPRESSION: Status post left nephrectomy. Unremarkable ultrasound appearance of the right kidney and urinary bladder. D/ / Shruti Baxter MD / Shruti Baxter MD Interpreting Provider: Shruti Baxter MD - Attending Attestation I examined this patient and my medical decision-making was reviewed with the Resident Physician Dr. Spence. I agree with the documented findings, disposition and treatment plan as described except to the extent set forth below. Ms. Garcia is a 62 year old female with history of COPD, hypertension, kidney cancer, hyperlipidemia, CAD status post angioplasty 2, chronic pain who presents to [facility] from [facility] due to chest pain. Her troponin peaked at 1.45. She happened to have JEFF , which resolved with IV hydration. She is shceduled for C today. However her BP was in low 80's today and pt is little lela too. She denied any active CP now. Gen: A, A< O x3 Chest: Diminished BS b/l . No wheezing, no rales Heart: S1S2+ RRR a/p 1. Acute NSTEMI 2. Acute CP Scheduled for LHC 3. Sinus bradycardia 4. Hypotension Cont IVF Bradycardia improving d/c BB Card on board 5. JEFF Resolved <Jaycob Spence - Last Filed: 08/25/18 16:00> (1) Hypotension Qualifiers: Hypotension type: unspecified hypotension type Qualified Code(s): I95.9 - Hypotension, unspecified (4) COPD (chronic obstructive pulmonary disease) Qualifiers: COPD type: chronic bronchitis Chronic bronchitis type: simple Qualified Code (s): J41.0 - Simple chronic bronchitis (5) Leukocytosis Qualifiers: Leukocytosis type: unspecified Qualified Code(s): D72.829 - Elevated white blood cell count, unspecified <Agustin Drake - Last Filed: 08/25/18 17:19> (3) COPD (chronic obstructive pulmonary disease) Qualifiers: COPD type: chronic bronchitis Chronic bronchitis type: simple Qualified Code (s): J41.0 - Simple chronic bronchitis (4) Leukocytosis Qualifiers: Leukocytosis type: unspecified Qualified Code(s): D72.829 - Elevated white blood cell count, unspecified (6) Hypotension Qualifiers: Hypotension type: unspecified hypotension type Qualified Code(s): I95.9 - Hypotension, unspecified
[2018-08-25 08:10] LABS: BUN/Creatinine Ratio 19 (6-26); Blood Urea Nitrogen 18 mg/dL (8-23); Calcium 8.8 mg/dL (8.6-10.3); Carbon Dioxide 23 mEq/L (23-29); Chloride 111 mEq/L (98-107); Glucose 84 mg/dL (70-105); Osmolality,Calculated 291 (280-300); Potassium 4.4 mEq/L (3.5-5.1); Sodium 140 mEq/L (136-145); eGFR For Non-African Americans > 60 (> 60)
[2018-08-25 08:13] LABS: Uric Acid 4.8 mg/dL (2.3-7.6)
[2018-08-25] MEDS: tiZANidine 4 MG TABLET PO SCH (08:17)
[2018-08-25] MEDS: AMLODI PO SCH (08:17)
[2018-08-25] MEDS: diazePAM 10 MG TABLET PO SCH (08:18)
[2018-08-25] MEDS: Aspirin Enteric Coated 81 MG Tablet PO SCH (08:18)
[2018-08-25] MEDS: Heparin 25,000 UNIT/500 ML D5W 25,000 UNIT/500 ML BAG IVC SCH (08:19)
[2018-08-25 08:29] LABS: Hepatitis B Surface Antigen Nonreactive (Nonreactive)
[2018-08-25] MEDS: Budesonide/Formoterol 160/4.5 1 PUFF INH IH SCH ×2 (08:43→21:31)
[2018-08-25] MEDS: *HR* Acetylcysteine 20% 600 MG/3 ML ORAL SYRINGE PO SCH ×2 (09:01→21:28)
[2018-08-25] MEDS ORDERED: 0.9 % Sodium Chloride 500 ML IVC ONE ×2 (09:50→11:33)
[2018-08-25] MEDS ORDERED: diazePAM 10 MG TABLET PO PRN (09:52)
[2018-08-25] MEDS ORDERED: tiZANidine 4 MG TABLET PO PRN (09:52)
--- NOTE | 2018-08-25 10:37 | Event Note ---
Date of Encounter: 08/25/18 Time of Encounter: 10:34 - Cardiology Event Note Planning for possible LHC later today. JEFF resolved. Appreciate nephrology input. Hypotension and mild bradycardia noted after starting home antihypertensive medications. Also not to have hypotension on presentation to [facility]. Recommend stopping beta-willie due to bradycardia, HR 50. Give IV 500 cc fluid bolus. Tolerating heparin gtt for 48 hours with no sign of bleeding, Hgb stable. TTE reviewed. EF 65-70%. Normal LV and normal RV function. No PAH seen. Keep NPO for possible procedure.
--- NOTE | 2018-08-25 12:17 | Cardiology Progress Note ---
Date of Encounter: 08/25/18 Time of Encounter: 12:10 Assessment and Plan (1) NSTEMI (non-ST elevated myocardial infarction) Current Visit: Yes Status: Acute Elevated troponin up to 2.99 at [facility] and trending down. Currently pain free. H/o PCI. Left heart catheterization in 09/2013: Left main normal. LAD proximal 20% ISR. Circumflex normal. OM1 normal. RCA proximal 70% stenosis (DEANNE placed). On heparin gtt and tolerating well. TTE- EF 65-70%, normal LV size and function, no PAH, no significant valvular disease. Recommend asa, statin. Hold bb due to bradycardia and hypotension after being given lopressor and norvasc. [facility] is recommended for further evaluation once stable b/p standpoint and after medication given for allergy. LHC R/B/A including ANNE discussed and she is agreeable. Kidney function returned to baseline. Appreciate nephrology recommendations. Due to IV dye allergy she will need prednisone prior procedure starting tonight. IV fluid given for hypotension and bradycardia. (2) JEFF (acute kidney injury) Current Visit: Yes Status: Acute Scr up to 3.6 (per H&P) at outside facility and now back to normal. Mucomyst started by nephrology. Discussion w patient/family: The assessment and plan as outlined above was discussed with the patient and/or family members who expressed understanding and agreement. All questions were answered. Thank you for involving us in the care of your patient. Please call with any questions. Subjective Principal diagnosis: NSTEMI Interval history: Ms. Garcia is drsy on my exam. She developed hypotension and mild bradycardia after her morning medications. C cancelled for today. She reports IV dye allergy in the past. C/o SOB with IV dye. Objective Vital Signs, Last 4 Hours Temp Pulse Resp BP Pulse Ox 08/25/18 11:00 97.9 F 53 18 90/65 96 08/25/18 08:42 97 General: Conversant, No Apparent Distress, Other (drowsy) HEENT: Atraumatic, Normocephaly, Mucus Membranes Moist Neck: No JVD, Normal carotid pulses Cardiac: Reg Rate and Rhythm, Normal S1 and S2, No Murmur Lungs: Normal Breath Sounds, No Wheeze, Rales, Rhonchi Neuro: Alert and responsive, No focal deficits noted Abdomen: Soft, Non-Tender Skin: No rashes noted on visualized skin Musculoskeletal: No Chest Wall Tenderness Extremities: No Clubbing, No Cyanosis, No Edema, Normal Pulses Results 08/25/18 07:19 08/25/18 07:19 Lab Results 08/24/18 08/25/18 08/25/18 14:23 07:19 07:19 WBC 15.8 H Hgb 11.7 Hct 37.9 Plt Count 213 Sodium 140 Potassium 4.4 Chloride 111 H Carbon Dioxide 23 BUN 18 Creatinine 1.42 H 0.93 Glucose 84 Calcium 8.8 - Imaging and Cardiology Echo: report reviewed - EKG Interpretation EKG results cardiology: personally reviewed Consult Discharge Plan - Plan Referrals: Luis Felipe Huerta DO [Primary Care Provider] -
--- NOTE | 2018-08-25 13:02 | Nephrology Progress Note ---
Date of Encounter: 08/25/18 Time of Encounter: 13:01 - Assessment and Plan (1) JEFF (acute kidney injury) Current Visit: Yes Status: Acute JEFF vs CKD, unsure of baseline, awaiting baseline labs from PCP. Avoid nephrotoxins. Continue IVF. [facility] today. (2) NSTEMI (non-ST elevated myocardial infarction) Current Visit: Yes Status: Acute Per cardio. (3) COPD (chronic obstructive pulmonary disease) Current Visit: No Status: Chronic Per primary, Qualifiers: COPD type: chronic bronchitis Chronic bronchitis type: simple Qualified Code(s): J41.0 - Simple chronic bronchitis Subjective Principal diagnosis: NSTEMI Interval history: Pt seen and examined, doing well. Denies CP/SOB. Objective - Vital Signs Vital signs: Vital Signs Temp Pulse Resp BP Pulse Ox 08/25/18 11:00 97.9 F 53 18 90/65 96 08/25/18 08:42 97 08/25/18 07:48 97.8 F 79 15 105/74 98 08/25/18 02:49 98.0 F 62 14 97/76 97 08/24/18 23:27 97.8 F 68 101/60 97 08/24/18 21:43 20 95 08/24/18 21:00 95 08/24/18 18:53 98.0 F 101 117/77 08/24/18 14:27 98.3 F 103 18 140/96 96 Intake and Output 08/24/18 08/25/18 08/25/18 23:59 07:59 15:59 Intake Total 1109 / 1109 123 / 123 Output Total 950 / 950 1250 / 1250 Balance 159 / 159 -1250 / -1250 123 / 123 Intake: IV Fluids 1109 / 1109 123 / 123 0.9 % Sodium Chloride 1,000 ML 1000 / 1000 @ 125 mls/hr IVC .Q8H [facility] Rx#: [id number] Output: Urine 950 / 950 1250 / 1250 Other: Weight 68 kg Patient Weight 08/25/18 23:59 Weight 68 kg - General Appearance General appearance: Present: well-developed, well-nourished EENT: Present: ATNC, hearing intact, vision intact Neck: Present: supple Respiratory: Present: clear Cardiology: Present: no edema, normal S1, normal S2 Gastrointestinal: Present: normoactive bowel sounds, no tenderness, no guarding Integumentary: Present: no rash, warm and dry Neurologic: Present: alert and oriented x3 Psychiatric: Present: mood/affect appropriate, cooperative - Lab 08/25/18 07:19 08/25/18 07:19 Most recent lab results Calcium 8.8 mg/dL (8.6-10.3) 08/25/18 07:19 Magnesium 1.7 mg/dL (1.6-2.6) 08/23/18 22:09 Urine Sodium 95.0 mEq/L 08/24/18 18:00 Consult Discharge Plan - Plan Referrals: Luis Felipe Huerta, [Primary Care Provider] -
[2018-08-25] MEDS ORDERED: Adenosine 90 MG/30 ML MLS IV ONE (13:42)
[2018-08-25] MEDS: predniSONE 20 MG TABLET PO SCH (21:27)
[2018-08-26 02:10] LABS: Hepatitis A Antibody IgM Nonreactive (Nonreactive); Hepatitis B Core IgM Nonreactive (Nonreactive); Hepatitis C Virus Antibody Nonreactive (Nonreactive)
[2018-08-26 05:46] LABS: Basophils % 0.3 %; Hematocrit 40.1 % (35.3-44.9); Hemoglobin 12.7 g/dL (11.5-15.4); Immature Granulocytes % 0.7 % (0-4); Lymphocytes # 0.7 K/mcL (0.6-4.6); Lymphocytes % 10.3 %; Mean Corpuscular HGB Conc 31.7 g/dL (31.6-35.5); Mean Corpuscular Hemoglobin 29.8 pg (28.0-33.3); Mean Corpuscular Volume 94.1 fL (83.0-100.0); Mean Platelet Volume 12.1 fL (9.4-12.4); Monocytes # 0.1 K/mcL (0.0-1.3); Monocytes % 0.7 %; Platelet Count 211 K/mcL (140-400); Red Blood Count 4.26 M/mcL (3.82-4.97); Red Cell Distribution Width 13.6 % (11.5-14.5)
[2018-08-26 05:50] LABS: Neutrophils # 6.3 K/mcL (1.6-8.9)
[2018-08-26 06:08] LABS: BUN/Creatinine Ratio 16 (6-26); Blood Urea Nitrogen 12 mg/dL (8-23); Carbon Dioxide 24 mEq/L (23-29); Chloride 108 mEq/L (98-107); Glucose 164 mg/dL (70-105); Osmolality,Calculated 293 (280-300); Potassium 4.2 mEq/L (3.5-5.1); Sodium 140 mEq/L (136-145); eGFR For Non-African Americans > 60 (> 60)
[2018-08-26] MEDS: Budesonide/Formoterol 160/4.5 1 PUFF INH IH SCH ×2 (07:52→20:17)
[2018-08-26] MEDS: Aspirin Enteric Coated 81 MG Tablet PO SCH (08:32)
[2018-08-26] MEDS: predniSONE 20 MG TABLET PO SCH (08:32)
[2018-08-26] MEDS: amLODIPine 5 MG TABLET PO SCH (08:32)
[2018-08-26] MEDS: *HR* Acetylcysteine 20% 600 MG/3 ML ORAL SYRINGE PO SCH (08:37)
[2018-08-26] MEDS: Heparin 25,000 UNIT/500 ML D5W 25,000 UNIT/500 ML BAG IVC SCH ×2 (08:38→14:02)
--- NOTE | 2018-08-26 08:57 | Internal Med Progress Note ---
<Jaycob Spence - Last Filed: 08/26/18 13:31> Hospitalist Progress Note - Encounter Date of Encounter: 08/26/18 Time of Encounter: 09:26 - Subjective Interval History: Ms. Garcia is a 62F is PMH of COPD, HTN, HLD, and CAD who was transferred from [facility] for chest pain. She was found to have an NSTEMI; no EKG changes, but elevated troponins. 2.2 on admission. She experienced some hematochezia with abdominal cramping, but no pain; however that has resolved. Pt states she has hx of hemorrhoids. Pt seen and examined at bedside. States she feels "ok" today and continues to speak with her oldest son on the phone. No fever, chills, chest pain, increased shortness of breath, change in sputum production or character, nausea, or vomiting at this time. Continues to have normal bowel movements. States she started to feel more energized yesterday after an argument with her younger son. - Exam Vitals: Temp Pulse Resp BP Pulse Ox 98.1 F 85 14 146/84 98 08/26/18 07:35 08/26/18 07:35 08/26/18 08:15 08/26/18 07:35 08/26/18 08:15 Exam: Constitutional: well nourished, well developed female. no acute distress Head: Normocephalic, atraumatic Eyes: PERRL, EOMI, conjunctiva pink, sclera anicteric Neck: Supple, trachea midline, no lymphadenopathy Lungs: CTA bilaterally. Nonlabored breathing. No rales, or rhonchi noted. Cardiac: RRR. No murmurs, clicks, or rubs noted. GI: Abdomen soft, non-distended, nontender. Normoactive bowel sounds Extremities: Warm, radial pulses palpable and symmetrical. No cyanosis, pedal edema, or calf tenderness. Neuro: Alert and oriented 3. No focal deficits. Normal speech. Skin: Warm, dry, and intact. - Assessment and Plan (1) NSTEMI (non-ST elevated myocardial infarction) Current Visit: Yes Status: Acute Assessment and Plan: NSTEMI elevated troponins 2.2, 2.4, and 1.4 EKG does not demonstrate any dynamic ischemic changes Patient does have history of CAD status post 2 stents in 2004 She is currently on aspirin and Plavix 75 mg Currently not having any chest pain Echo normal with LVEF 65-70% Cardio is on board, scheduled for LHC today Continue Heparin drip Continue ASA Hold beta-willie with bradycardia and hypotension as above, may consider restarting after cath if HR and BP allow (2) JEFF (acute kidney injury) Current Visit: Yes Status: Resolved Assessment and Plan: Acute kidney injury in solitary left kidney, Serum creatinine 3.69 -> 0.76 Says she continues to make urine, no urinary symptoms Likely related to hypovolemia or cardiogenic shock 2/2 NSTEMI Resolved at this time. Will continue to avoid nephrotoxins if possible IVF 75mL/hr since having LHC today (3) COPD (chronic obstructive pulmonary disease) Current Visit: No Status: Chronic Assessment and Plan: COPD without acute exacerbation Stable with no tachypnea or labored breathing Continue Symbicort and prn duonebs (4) Leukocytosis Current Visit: Yes Status: Resolved Assessment and Plan: Leukocytosis resolved at 7.1 No evidence of infection at this time No fevers, no increased cough or sputum production Recently received prednisone for COPD exacerbation Will continue to monitor (5) Hypotension Current Visit: Yes Status: Resolved Assessment and Plan: BP dropped to systolic in the 80s yesterday Pt remained asymptomatic Likely 2/2 cardiogenic shock from NSTEMI Could also be caused by medications Hold Metoprolol Hold home Zanaflex Hold home Valium Continue Amlodipine at 5mg qd (6) DVT prophylaxis Current Visit: Yes Status: Acute Assessment and Plan: On Heparin drip for NSTEMI (7) Bradycardia with 51-60 beats per minute Current Visit: Yes Status: Resolved Assessment and Plan: HR yesterday dropped to 50s Pt was asymptomatic. no confusion Could be 2/2 cardiogenic shock from NSTEMI Hold home metoprolol DVT Prophylaxis: on heparin drip for NSTEMI - Time Spent with Patient Total time spent is greater than 50% in coordination of care (as documented) at patient's floor/unit and/or counseling patient: Internal Medicine: Result - Labs CBC & Chem 7: 08/26/18 04:16 08/26/18 04:16 Labs: Short CBC 08/26/18 Range/Units 04:16 WBC 7.1 D (4.3-11.1) K/mcL Hgb 12.7 (11.5-15.4) g/dL Hct 40.1 (35.3-44.9) % Plt Count 211 (140-400) K/mcL Neutrophils # 6.3 (1.6-8.9) K/mcL BMP 08/26/18 04:16 Sodium 140 Potassium 4.2 Chloride 108 H Carbon Dioxide 24 BUN 12 Creatinine 0.76 Glucose 164 H Calcium 9.0 - ABG Interpretation ABG results: PT/INR, D-dimer PT 11.0 Seconds (9.4-12.1) 08/23/18 22:09 Consult Discharge Plan - Plan Referrals: Luis Felipe Huerta DO [Primary Care Provider] - <Agustin Drake - Last Filed: 08/26/18 16:16> Hospitalist Progress Note - Encounter Date of Encounter: 08/26/18 - Exam Vitals: Temp Pulse Resp BP Pulse Ox 97.7 F 90 18 156/94 99 08/26/18 11:37 08/26/18 11:37 08/26/18 11:37 08/26/18 11:37 08/26/18 11:37 - Assessment and Plan (1) NSTEMI (non-ST elevated myocardial infarction) Current Visit: Yes Status: Acute (2) JEFF (acute kidney injury) Current Visit: Yes Status: Resolved (3) COPD (chronic obstructive pulmonary disease) Current Visit: No Status: Chronic (4) Leukocytosis Current Visit: Yes Status: Resolved (5) DVT prophylaxis Current Visit: Yes Status: Acute (6) Hypotension Current Visit: Yes Status: Resolved (7) Bradycardia with 51-60 beats per minute Current Visit: Yes Status: Resolved - Time Spent with Patient Total time spent is greater than 50% in coordination of care (as documented) at patient's floor/unit and/or counseling patient: Internal Medicine: Result - Labs CBC & Chem 7: 08/26/18 04:16 08/26/18 04:16 Labs: Short CBC 08/26/18 Range/Units 04:16 WBC 7.1 D (4.3-11.1) K/mcL Hgb 12.7 (11.5-15.4) g/dL Hct 40.1 (35.3-44.9) % Plt Count 211 (140-400) K/mcL Neutrophils # 6.3 (1.6-8.9) K/mcL BMP 08/26/18 04:16 Sodium 140 Potassium 4.2 Chloride 108 H Carbon Dioxide 24 BUN 12 Creatinine 0.76 Glucose 164 H Calcium 9.0 - ABG Interpretation ABG results: PT/INR, D-dimer PT 11.0 Seconds (9.4-12.1) 08/23/18 22:09 - Attending Attestation I examined this patient and my medical decision-making was reviewed with the Resident Physician Dr. Spence. I agree with the documented findings, disposition and treatment plan as described except to the extent set forth below. Ms. Garcia is a 62 year old female with history of COPD, hypertension, kidney cancer, hyperlipidemia, CAD status post angioplasty 2, chronic pain who presents to [facility] from [facility] due to chest pain. Her troponin peaked at 1.45. She happened to have JEFF , which resolved with IV hydration. She denied any active CP now. Her HR and BP better today.. Had LHC today.. which showed moderate disease in RCA, no interventions, other than medical management. Gen: A, A< O x3 Chest: Diminished BS b/l . No wheezing, no rales Heart: S1S2+ RRR a/p 1. Acute NSTEMI 2. Acute CP s/p LHC moderate disease cont ASA, Statin gentle hydration only 3. Sinus bradycardia 4. Hypotension resolved d/c BB 5. JEFF Resolved <Jaycob Spence - Last Filed: 08/26/18 13:31> (3) COPD (chronic obstructive pulmonary disease) Qualifiers: COPD type: chronic bronchitis Chronic bronchitis type: simple Qualified Code (s): J41.0 - Simple chronic bronchitis (4) Leukocytosis Qualifiers: Leukocytosis type: unspecified Qualified Code(s): D72.829 - Elevated white blood cell count, unspecified (5) Hypotension Qualifiers: Hypotension type: unspecified hypotension type Qualified Code(s): I95.9 - Hypotension, unspecified <Agustin Drake - Last Filed: 08/26/18 16:16> (3) COPD (chronic obstructive pulmonary disease) Qualifiers: COPD type: chronic bronchitis Chronic bronchitis type: simple Qualified Code (s): J41.0 - Simple chronic bronchitis (4) Leukocytosis Qualifiers: Leukocytosis type: unspecified Qualified Code(s): D72.829 - Elevated white blood cell count, unspecified (6) Hypotension Qualifiers: Hypotension type: unspecified hypotension type Qualified Code(s): I95.9 - Hypotension, unspecified
--- NOTE | 2018-08-26 09:18 | Event Note ---
Date of Encounter: 08/26/18 Time of Encounter: 09:17 - Cardiology Event Note Patient is scheduled for [facility] at 10 AM. She denies questions. Her blood pressure improved with discontinuation of metoprolol and decreasing Norvasc. Heart rate also improved. She is not on beta willie due to bradycardia. Continue aspirin and statin. She is on heparin drip. She denies chest pain. She was prepped for her allergy to IV dye.
[2018-08-26] MEDS ORDERED: Heparin 1,000 UNITS/500 mL 500 ML ONE (09:21)
[2018-08-26] MEDS ORDERED: 0.9 % Sodium Chloride 1,000 ML ONE ×2 (09:21→09:44)
[2018-08-26] MEDS ORDERED: *HR* Heparin 10,000 UNIT/10 ML VIAL ONE (09:21)
[2018-08-26] MEDS ORDERED: ISOVUE-370 200 ML INFUS..BTL IV ONE (09:21)
[2018-08-26] MEDS ORDERED: Nitroglycerin 1,000 MCG/10 ML VIAL IV ONE (09:22)
[2018-08-26] MEDS ORDERED: *HR* Midazolam HCl 2 MG/2 ML VIAL ONE (10:10)
[2018-08-26] MEDS ORDERED: *HR* FentaNYL (PF) 100 MCG/2 ML VIAL ONE (10:10)
--- NOTE | 2018-08-26 11:15 | Pre-Sedation Evaluation ---
Pre-sedation evaluation - Pre-sedation checklist Date of procedure: 08/26/18 Procedure: Heart Cath Recent Vitals: Last Vital Signs Temp 98.1 F 08/26/18 07:35 Pulse 85 08/26/18 07:35 Resp 14 08/26/18 08:15 BP 146/84 08/26/18 07:35 Pulse Ox 98 08/26/18 08:15 H&P (including ROS) documented in medical record: Yes Dietary Status: NPO after Midnight Dentition: poor dentition ASA Classification *see protocol: CLASS II-Mild systemic disease Cardiac Registry (Cardio Only) - Functional Capacity Functional Capacity: >=4 METS with symptoms - Clincal Frailty Scale Clinical Frailty Scale: Managing Well
--- NOTE | 2018-08-26 11:31 | Invasive Diagnostic Lab Proc ---
Name: Lesli Garcia Date of Study: 08/26/2018 Date: 1955 Ht: 61.8in Medical Record#: [id number] Age: 62 Wt: 149.91lb Gender: Female BSA: 1.69 Order #: [id number] BMI: 27.59 Physicians Procedure Physician: Hillary Leon MD, [facility] Referring MD: Referring MD: Staff Name Position Time In Roe Carrillo RN Parole Board Member 10:07 AM Bhavani Morris RT (R) Monitor 10:07 AM Jennifer Bergeron RT (R) Scrub 10:07 AM Indications Indication Non-Stemi Procedures Performed Procedure L HRT ARTERY/VENTRICLE ANGIO IV Doppler BLD Flow 1st Vessel Pre-Procedure Checklist Informed consent is complete signed and on chart. H&P is on chart. ID band is on and ID verified with patient. Patient NPO for procedure The procedure was described for the patient and questions were answered. ECG is on chart. Plan of Care Patient will tolerate the procedure without complications. Adequate level of comfort will be maintained. Hemodynamics will remain stable Patient will recover from procedure without complications. Respiratory function will be maintained. Cardiac rhythm will remain stable. Patient temperature will be maintained. Patient and/or family have verbalized understanding of the procedure. Patient Education Chief Complaint/Reason for Test: Cardiac Cath Developmental Category: Adult (18-64 years) Developmentally Appropriate for Age: Yes Learning Barriers: None Education Needs: Procedure Education Method: Verbal Information Taught: Cardiac Cath Educational Evaluation: Able to repeat information Intravenous Access Time IV Size Location DC'd Fluid/Drip Rate Units RN 20g 1 /" Patent On Arrival 0.9NaCl ml/hr Allergies Sertraline Tramadol PCN (penicillin) Contrast Media, Iodine Related Iodinated Contrast- Oral and IV Dye Penicillins morphine hydrocodone acetaminophen IVP DYE, PCN, MORPHINE, DEMORAL, SURGICAL TAPE TRAMADOL, SUDAFED, LORTAB, ZOLOFT Midodrine Vital Signs Time BP (mmHg) HR (bpm) O2 Sat. RR (bpm) LOC 10:08 AM / % 5 = Fully awake and oriented or at pre-proc level Procedural Medications Time Medication Dose Units Method Given By 10:08 AM Oxygen 2 L/min nasal cannula Roe Carrillo RN 10:11 AM Versed 1 mg Intravenous Roe Carrillo RN 10:11 AM Fentanyl 50 mcg Intravenous Roe Carrillo RN 10:33 AM Versed 1 mg Intravenous Roe Carrillo RN 10:33 AM Fentanyl 25 mcg Intravenous Roe Carrillo RN 10:40 AM Lidocaine 2% 10 ml Subcutaneous Hillary Leon MD, FACC 10:41 AM Lidocaine 2% 4 ml Subcutaneous Hillary Leon MD, FACC 10:54 AM Heparin 3000 units Intravenous Roe Carrillo RN 10:55 AM 90mg Adenosine in 90 ml 0.9 NS 571 ml/hr Intravenous Roe Carrillo RN Jerald Score Preprocedure Postprocedure Activity 2- Moves 4 extremities sustained head lift Activity 2- Moves 4 extremities sustained head lift Circulation 2- SBP +/= 20 points of pre-anesthetic level Circulation 2- SBP +/= 20 points of pre-anesthetic level Consciousness 2- Awake and alert oriented x 3 Consciousness 2- Awake and alert oriented x 3 O2 Saturation 2- Able to maintain O2 satruation of 92% on room air O2 Saturation 2- Able to maintain O2 satruation of 92% on room air Respiratory 2- Able to deep breathe and cough well Respiratory 2- Able to deep breathe and cough well Total Score 10 Total Score 10 Contrast Agent: Isovue Diagnostic Contrast: 49 ml Total Contrast: 49 ml Fluoro Dose: 2752 mGy Activated Clotting Time Time Seconds to Clot 10:54 AM 161 Procedure Log Time Note Enter By 10:07 AM Pt arrived to phlebotomy lab assistant 2 at 10:07 [email or web address] 10:07 AM Roe Carrillo RN Position: Parole Board Member Time in: 10: [email or web address] 10:07 AM Bhavani Morris RT (R) Position: Monitor Time in: 10: [email or web address] 10:07 AM Jennifer Bergeron RT (R) Position: Scrub Time in: 10:07 [email or web address] 10:07 AM Patient charges- Angio tray pack, Navilyst 3mm J, Pulse Oximetry and ACIST tubing and transducer [email or web address] 10:08 AM Hair removed from procedure site in holding area using clippers. Bilateral groin prepped with Chloraprep by Bhavani Morris RT (R), then patient was draped. [facility] intact. [email or web address] AM Physician arrived 10:08 [email or web address] 10:08 AM Meet and ganga completed [email or web address] 10:08 AM Sign in performed according to hospital policy. Informed consent was obtained. [email or web address] 10:08 AM Procedure start 10:08 [email or web address] 10:08 AM Time: 10:08 Patient comfortable and pain free: Yes [email or web address] 10:08 AM Time: 10:08LOC: 5 = Fully awake and oriented or at pre-proc level [email or web address] 10:09 AM Time: 10:08 Oxygen on at 2 L/min per nasal cannula by Roe Carrillo RN [email or web address] 10:11 AM Time: 10:11 Versed 1 mg Intravenous Given by Roe Carrillo RN [email or web address] 10:11 AM Time: 10:11 Fentanyl 50 mcg Intravenous Given by Roe Carrillo RN [email or web address] 10:33 AM Time: 10:33 Versed 1 mg Intravenous Given by Roe Carrillo RN [email or web address] 10:33 AM Time: 10:33 Fentanyl 25 mcg Intravenous Given by Roe Carrillo RN [email or web address] 10:40 AM Time out was performed according to hospital policy. Conscious sedation and anesthesia was achieved (see medication log with in this report above) [email or web address] 10:40 AM Time: 10:40 10 ml Lidocaine 2% to right groin Subcutaneous Given by Hillary Leon MD, [facility] [email or web address] 10:41 AM Micro-Introducer Kit utilized for sheath placement [email or web address] 10:42 AM Unsuccessful access attempt # 1 into the right Femoral artery. Manual pressure applied to achieve hemostasis.. [email or web address] 10:43 AM 3 mls contrast injected into Rt groin. [email or web address] 10:44 AM Access obtained by percutaneous puncture. 6Fr 10cm Terum[employer] [place] sheath placed in right Femoral artery. [id number] [email or web address] 10:44 AM 0.035 145cm Navilyst 3mmJ wire [id number] [email or web address] 10:44 AM 5Fr FR 4 catheter inserted over the wire Critical access [email or web address] 10:45 AM RCA angiography performed in multiple views. [email or web address] 10:45 AM Coronary Dominance: right [email or web address] 10:46 AM Catheter removed [email or web address] 10:47 AM 5Fr FL 4 catheter inserted over the wire [facility] [email or web address] 10:49 AM Catheter removed [email or web address] 10:51 AM 6Fr JR 4 [place] Bright-Tip guide catheter was used to cannulate the PCI vessel successfully. reused? No [email or web address] 10:51 AM Inflation device was opened. 3 10:54 AM [employer] FFR Wire advanced to target lesion. 3 10:54 AM At 10:54 the ACT was 161 seconds. [email or web address] 10:54 AM Time: 10:54 Heparin 3000 units Intravenous Given by Roe Carrillo RN 3 10:58 AM Comet wire removed. 3 10:58 AM Asist FFR Catheter advanced to target lesion. [email or web address] 11:00 AM .014 [employer] [place] 190cm guide wire across target lesion- successful. reused? No 3 11:03 AM FFR Measurement: 0.93 in RCA mk 11:03 AM Catheter removed. [email or web address] 11:04 AM Guide wire removed intact. [email or web address] 11:04 AM Guide catheter removed intact. 3 11:05 AM 5Fr Pigtail catheter inserted over the wire [facility] 11:05 AM Catheter crossed the aortic valve and was selectively placed in the left ventricle. Pressures recorded on pullback for left heart catheterization. 11:07 AM Pressures recorded no LV gram. 3 11:07 AM Catheter removed 11:07 AM Procedure completed at 11:07 08/26/2018 [email or web address] 11:07 AM Did you address JESUS flow and Dominance? Yes [email or web address] 11:08 AM Sign out completed: Radiation Dose 279.92 mGy, 2751.93 cGy/cm2 Fluoro Time: 3.9 Isovue 370 - 200ml contrast 49 ml given by Hillary Leon MD, [facility]. Complications: None. The patient was discharged out of the laborer [facility] in stable condition. Cardiac Rehab Consult needed: NoConfirmed administered medications: Yes [email or web address] 11[facility]08 AM Isovue 370 - 200ml,1 Bottle(s) used. [email or web address] 11:08 AM Arterial sheath pulled, Angio-seal closure device used and was Successful S/N. [email or web address] 11:08 AM Estimated Blood Loss: minimal [email or web address] 11:09 AM Post ECG NSR [email or web address] 11:09 AM 11:09 Post Pulses Bilateral DP & PT 1+ [email or web address] 11:10 AM Information taught Cardiac Cath and Angioseal [email or web address] 11:10 AM Education needs Procedure, Disease Process, and Discharge Instructions [email or web address] 11:10 AM Learning barriers :None [email or web address] 11:10 AM Education Methods Verbal [email or web address] 11:10 AM Education evaluation Able to repeat information [email or web address] 11:10 AM Delay to floor No [email or web address] 11:11 AM Family placed in not available. [email or web address] 11:11 AM Complications: None [email or web address] 11:20 AM Post Blood Pressure 172/93 [email or web address] 11:21 AM Report given to Vi BELL Pt taken to E Room #28. 11:20 [email or web address] 11:23 AM Site status No bleeding/hematoma - Rt Groin as reported by Roe Carrillo RN at 11:23 [email or web address] 11:23 AM Opsite applied [email or web address] 11:24 AM Patient out of room: 11:24 [email or web address] Complications Complication None None Hemodynamics Pressures Site Systolic/A Wave Diastolic/V Wave Mean AO 193 100 145 LV 175 2 17 AO 154 105 128 AO 177 99 133 LV 140 81 87 Hemodynamics Pressures Site Systolic/A Wave Diastolic/V Wave Mean AO Hemodynamics Pressures Site Systolic/A Wave Diastolic/V Wave Mean AO Post Procedure Information Blood Pressure: 172/93 mmHg Rhythm: NSR Post procedural instructions were given Closure Device Time Device Success/Fail 08/26/2018 11:14:00 AM Angio-Seal VIP Successful Site Checks Time Location Status Staff Sheath In? Note 11:23 AM Rt Groin No bleeding/hematoma Roe Carrillo RN Pulses Time Site Pre-Procedure Post-Procedure Note Bilateral DP & PT 1+ Bilateral radial 2+ 11:09:00 AM Bilateral DP & PT 1+ Updated by Bhavani Morris, RT(R) on 08/26/2018 11:25:14 AM electronically signed on 08/26/2018 11:25:45 AM with status of Final
--- NOTE | 2018-08-26 11:43 | Nephrology Progress Note ---
Date of Encounter: 08/26/18 Time of Encounter: 11:42 - Assessment and Plan (1) JEFF (acute kidney injury) Current Visit: Yes Status: Resolved Baseline Scr is 1 and GFR is 55-60. Avoid nephrotoxins. [facility] today. We will sign off at this time, please reconsult as needed. (2) NSTEMI (non-ST elevated myocardial infarction) Current Visit: Yes Status: Acute Per cardio. (3) COPD (chronic obstructive pulmonary disease) Current Visit: No Status: Chronic Per primary. Qualifiers: COPD type: chronic bronchitis Chronic bronchitis type: simple Qualified Code(s): J41.0 - Simple chronic bronchitis Subjective Principal diagnosis: NSTEMI Interval history: Pt is off the floor for heart cath. Objective - Vital Signs Vital signs: Vital Signs Temp Pulse Resp BP Pulse Ox 08/26/18 08:15 14 98 08/26/18 07:35 98.1 F 85 20 146/84 97 08/25/18 21:32 16 98 08/25/18 21:00 96 08/25/18 19:17 98.1 F 62 16 135/85 96 08/25/18 15:00 97.6 F 79 16 122/78 96 Intake and Output 08/25/18 08/26/18 08/26/18 23:59 07:59 15:59 Intake Total 496 / 496 Output Total 1600 / 1600 1200 / 1200 Balance -1104 / -1104 -1200 / -1200 Intake: IV Fluids 156 / 156 Heparin 25,000 UNIT/500 ML D5W 156 / 156 25,000 unit In 500 ml @ 14 UNIT /KG/HR 18.144 mls/hr IVC .Q24H ARMOND Rx#:[id number] Oral 340 / 340 Output: Urine 1600 / 1600 1200 / 1200 Other: Meal Dinner Percent of Meal Consumed 30% - Lab 08/26/18 04:16 08/26/18 04:16 Most recent lab results Calcium 9.0 mg/dL (8.6-10.3) 08/26/18 04:16 Magnesium 1.7 mg/dL (1.6-2.6) 08/23/18 22:09 Urine Sodium 95.0 mEq/L 08/24/18 18:00 Consult Discharge Plan - Plan Referrals: Luis Felipe Huerta DO [Primary Care Provider] -
[2018-08-26] MEDS: *HR* OxyCODONE/APAP 5/325 TABLET PO PRN ×2 (12:44→20:05)
--- NOTE | 2018-08-26 14:20 | Event Note ---
Date of Encounter: 08/26/18 Time of Encounter: 14:17 - Cardiology Event Note S/p LHC. No intervention. Moderate disease seen in the RCA. FFR 0.93. Medical management recommended. Continue asa, statin. No bb due to bradycardia in the low 50's with 12.5 mg lopressor. B/p improved. Start low dose imdur. Out-pt f/u in 1-2 weeks in cardiology office.
[2018-08-26] MEDS: 0.9 % Sodium Chloride 1,000 ML IVC SCH (14:44)
[2018-08-26] MEDS: Isosorbide MONOnitrate (24 HR) 30 MG TAB.ER.24H PO SCH (14:51)
[2018-08-26 21:16] LABS: Hemoglobin 11.8 g/dL (11.5-15.4)
[2018-08-27] MEDS: *HR* OxyCODONE/APAP 5/325 TABLET PO PRN ×2 (02:36→08:44)
[2018-08-27] MEDS: 0.9 % Sodium Chloride 1,000 ML IVC SCH (04:57)
[2018-08-27 05:26] LABS: Basophils % 0.1 %; Hematocrit 35.6 % (35.3-44.9); Hemoglobin 11.3 g/dL (11.5-15.4); Immature Granulocytes % 0.7 % (0-4); Lymphocytes # 2.5 K/mcL (0.6-4.6); Lymphocytes % 21.5 %; Mean Corpuscular HGB Conc 31.7 g/dL (31.6-35.5); Mean Corpuscular Hemoglobin 29.9 pg (28.0-33.3); Mean Corpuscular Volume 94.2 fL (83.0-100.0); Mean Platelet Volume 11.7 fL (9.4-12.4); Monocytes % 8.5 %; Neutrophils # 8.1 K/mcL (1.6-8.9); Platelet Count 196 K/mcL (140-400); Red Blood Count 3.78 M/mcL (3.82-4.97); Red Cell Distribution Width 13.5 % (11.5-14.5); Segmented Neutrophils % 69.2 %
[2018-08-27 05:37] LABS: BUN/Creatinine Ratio 17 (6-26); Blood Urea Nitrogen 13 mg/dL (8-23); Calcium 8.5 mg/dL (8.6-10.3); Carbon Dioxide 23 mEq/L (23-29); Chloride 110 mEq/L (98-107); Glucose 105 mg/dL (70-105); Osmolality,Calculated 290 (280-300); Potassium 3.4 mEq/L (3.5-5.1); Sodium 140 mEq/L (136-145); eGFR For Non-African Americans > 60 (> 60)
--- NOTE | 2018-08-27 08:29 | Discharge Summary ---
<Jaycob Spence - Last Filed: 08/27/18 10:31> - NOTES TO OUTPATIENT PROVIDER Notes to Outpatient Provider: Ms. Garcia was transferred from [facility] for chest pain on 08/23. She was found to have an NSTEMI. No EKG changes, but elevated troponins; 2.2 on admission. Her kidney functions were elevated on admission as well, likely secondary to hypovolemia or cardiogenic shock. Cardiology elected to hold off on [facility] until kidney functions improved. On 08/25 she was noted to have bradycardia in the 50s, and hypotension with systolic in the 80s, but remained asymptomatic. She underwent a LHC on 08/26. No interventions performed, moderate disease was found in the RCA. Cardiology recommended medical management with ASA, statin, and low dose imdur. Stopped beta-willie due to bradycardia and hypotension. Decreased Amlodipine to 5mg. Advised pt to follow up with PCP and Cardiology both in 1-2 weeks. Orders not resulted at time of discharge: Pending orders 08/25/18 08:20 CL Cardiac Catheterization [CL] Routine Date of Encounter: 08/27/18 Time of Encounter: 08:29 - Discharge Diagnosis (1) NSTEMI (non-ST elevated myocardial infarction) Priority: Primary Status: Acute Assessment and Plan: NSTEMI elevated troponins 2.2, 2.4, and 1.4 EKG does not demonstrate any dynamic ischemic changes Patient does have history of CAD status post 2 stents in 2004 She is currently on aspirin and Plavix 75 mg Currently not having any chest pain Echo normal with LVEF 65-70% [facility] on 08/26 with no intervention. There was moderate disease seen in the RCA. Continue ASA Hold beta-willie since recent episode of bradycardia Continue statin Per cardio: Low dose Imdur and f/u outpatient in 1-2 weeks (2) JEFF (acute kidney injury) Priority: Secondary Status: Resolved Assessment and Plan: Acute kidney injury in solitary left kidney, Serum creatinine 3.69 -> 0.77 Says she continues to make urine, no urinary symptoms Likely related to hypovolemia or cardiogenic shock / NSTEMI Resolved at this time. F/U with PCP in 2 weeks (3) COPD (chronic obstructive pulmonary disease) Priority: Secondary Status: Chronic Assessment and Plan: COPD without acute exacerbation Stable with no tachypnea or labored breathing Resume home Breo-Ellipta Qualifiers: COPD type: chronic bronchitis Chronic bronchitis type: simple Qualified Code(s): J41.0 - Simple chronic bronchitis (4) Leukocytosis Priority: Secondary Status: Resolved Assessment and Plan: Leukocytosis mildly elevated today at 11.7 No evidence of infection at this time No fevers, no increased cough or sputum production likely 2/2 recent steroid therapy for COPD exacerbation prior to admission today's leukocytosis likely reactive s/p [facility] Qualifiers: Leukocytosis type: unspecified Qualified Code(s): D72.829 - Elevated white blood cell count, unspecified (5) Hypotension Priority: Secondary Status: Resolved Assessment and Plan: BP dropped to systolic in the 80s on 08/25 Pt remained asymptomatic Likely 2/2 cardiogenic shock from NSTEMI Could also be caused by medications Hold Metoprolol Hold home Zanaflex Hold home Valium Continue Amlodipine at 5mg qd Most recent BP today 132/78 Qualifiers: Hypotension type: unspecified hypotension type Qualified Code(s): I95.9 - Hypotension, unspecified (6) Bradycardia with 51-60 beats per minute Priority: Secondary Status: Resolved Assessment and Plan: HR on 08/25 dropped to 50s Pt was asymptomatic. no confusion Could be 2/2 cardiogenic shock from NSTEMI Hold home metoprolol HR 82 today Hospital course: Ms. Garcia is a 62 year old female Discharge discussed with: patient, nurse, family consultant Time spent discussing smoking cessation with patient: more than 10 minutes - Time Spent with Patient Total time spent providing and/or coordinating discharge services: - Discharge Medications Prescriptions: amLODIPine [Norvasc] 5 mg PO DAILY 30 Days #30 tablet Isosorbide MONOnitrate (24 HR) [Imdur] 30 mg PO DAILY 30 Days #30 tab.er.24h Oxycodone HCl/Acetaminophen [Percocet 5-325 mg Tablet] 1 each PO 1-2XD PRN 2 Days #5 tablet PRN Reason: Pain Home Medications: Aspirin [Adult Aspirin] 81 mg PO DAILY 08/24/18 [History] DULoxetine [Cymbalta] 30 mg PO BID 08/24/18 [History] Fluticasone/Vilanterol [Breo Ellipta 100-25 Mcg INH] 1 puff IH DAILY 08/24/18 [ History] Gabapentin [Neurontin] 600 mg PO TID 08/24/18 [History] Lisinopril [Zestril] 20 mg PO DAILY 08/24/18 [History] Nitroglycerin [Nitrostat] 0.4 mg SL Q5M PRN 08/24/18 [History] Pantoprazole Sodium [Protonix] 40 mg PO DAILY 08/24/18 [History] Tizanidine HCl 4 mg PO TID 08/24/18 [History] diazePAM [Valium] 10 mg PO BID 08/24/18 [History] Isosorbide MONOnitrate (24 HR) [Imdur] 30 mg PO DAILY 30 Days #30 tab.er.24h 03/11 [Rx] Oxycodone HCl/Acetaminophen [Percocet 5-325 mg Tablet] 1 each PO 1-2XD PRN 2 Days #5 tablet 08/27/18 [Rx] amLODIPine [Norvasc] 5 mg PO DAILY 30 Days #30 tablet 08/27/18 [Rx] Allergies/Adverse Reactions: 3 Allergy/AdvReac Type Severity Reaction Status Date / Time acetaminophen Allergy Hives Verified 08/23/18 22:25 [From Lorcet (hydrocodone)] hydrocodone Allergy Hives Verified 08/23/18 22:25 [From Lorcet (hydrocodone)] Iodinated Contrast- Oral and Allergy Difficulty Verified 08/23/18 22:25 IV Dye Breathing meperidine [From Demerol] Allergy Gastrointestinal Verified 08/23/18 22:25 Upset Midodrine Allergy Hives Verified 08/23/18 22:25 morphine Allergy Hives Verified 08/23/18 22:25 Penicillins Allergy Hives Verified 08/23/18 22:25 pseudoephedrine Allergy Hives Verified 08/23/18 22:25 [From Sudafed] sertraline [From Zoloft] Allergy Hives Verified 08/23/18 22:25 tramadol [From Ultram] Allergy Hives Verified 08/23/18 22:25 adhesive tape AdvReac Rash Verified 08/23/18 22:25 Date of admission: 08/24/18 09:50 Primary care physician: Luis Felipe Huerta DO Consults: 08/23/18 22:33 Consult to Cardiology [CONS] Routine Comment: Consulting Provider: Cardiology [place] Reason for Consult: nstemi, hx of CAD s/p stents x2. Spoke with Dr. Cline Time Notified: 23:10 Call Completed: Yes 08/24/18 10:50 Consult to Nephrology [CONS] Routine Consulting Provider: Kidney Laila/ADRIÁN/ATA/PALOMA Reason for Consult: JEFF Call Completed: Yes 08/25/18 07:57 Consult to Cardiac Rehabilitation-Phase1 [CONS] Routine Comment: Reason for Consult: NSTEMI Call Completed: Yes Discharging clinician: Jaycob Spence - Constitutional Vitals: Temp Pulse Resp BP Pulse Ox 97.8 F 82 16 132/78 97 08/26/18 23:44 08/26/18 23:44 08/26/18 23:44 08/26/18 23:44 08/26/18 23:44 General appearance: Present: A&O X 3, pleasant, no acute distress Exam: Constitutional: well nourished, well developed female. no acute distress Head: Normocephalic, atraumatic Eyes: PERRL, EOMI, conjunctiva pink, sclera anicteric Neck: Supple, trachea midline, no lymphadenopathy Lungs: CTA bilaterally. Nonlabored breathing. No rales, or rhonchi noted. Cardiac: RRR. No murmurs, clicks, or rubs noted. GI: Abdomen soft, non-distended, nontender. Normoactive bowel sounds Extremities: Warm, radial pulses palpable and symmetrical. No cyanosis, pedal edema, or calf tenderness. Neuro: Alert and oriented 3. No focal deficits. Normal speech. Skin: Warm, dry, and intact. - Patient Status Disposition: Home, Self-Care Condition: Good Functional capacity at discharge: independent ambulation Overall status at discharge: patient is progressing back to baseline - Discharge Instructions Instructions: Amlodipine (By mouth), Isosorbide Mononitrate (By mouth), Myocardial Infarction (DC), Left Heart Catheterization (DC) Follow Up With: Luis Felipe Huerta DO [Primary Care Provider] - 09/02/18 1:30 pm Bryon An DO [Partnered Physician] - - Diet and Activity Activity: increase activity as tolerated, resume usual activities as tolerated Diet: low fat, low cholesterol, low salt diet <Agustin Drake - Last Filed: 08/27/18 13:19> Orders not resulted at time of discharge: Pending orders 08/25/18 08:20 CL Cardiac Catheterization [CL] Routine Date of Encounter: 08/27/18 - Discharge Diagnosis (1) NSTEMI (non-ST elevated myocardial infarction) Status: Acute (2) JEFF (acute kidney injury) Status: Resolved (3) COPD (chronic obstructive pulmonary disease) Status: Chronic Qualifiers: COPD type: chronic bronchitis Chronic bronchitis type: simple Qualified Code(s): J41.0 - Simple chronic bronchitis (4) Leukocytosis Status: Resolved Qualifiers: Leukocytosis type: unspecified Qualified Code(s): D72.829 - Elevated white blood cell count, unspecified (5) Hypotension Status: Resolved Qualifiers: Hypotension type: unspecified hypotension type Qualified Code(s): I95.9 - Hypotension, unspecified (6) Bradycardia with 51-60 beats per minute Status: Resolved Hospital course: Ms. Garcia is a 62 year old female - Time Spent with Patient Total time spent providing and/or coordinating discharge services: Date of admission: 08/24/18 09:50 Primary care physician: Luis Felipe Huerta DO Consults: 08/23/18 22:33 Consult to Cardiology [CONS] Routine Comment: Consulting Provider: Cardiology [place] Reason for Consult: nstemi, hx of CAD s/p stents x2. Spoke with Dr. Cline Time Notified: 23:10 Call Completed: Yes 08/24/18 10:50 Consult to Nephrology [CONS] Routine Consulting Provider: Kidney Laila/ADRIÁN/ATA/PALOMA Reason for Consult: JEFF Call Completed: Yes 08/25/18 07:57 Consult to Cardiac Rehabilitation-Phase1 [CONS] Routine Comment: Reason for Consult: NSTEMI Call Completed: Yes - Constitutional Vitals: Temp Pulse Resp BP Pulse Ox 97.9 F 103 16 146/103 97 08/27/18 08:35 08/27/18 11:09 08/27/18 11:09 08/27/18 11:09 08/27/18 11:09 - Attending Attestation I examined this patient and my medical decision-making was reviewed with the Resident Physician Dr. Spence. I agree with the documented findings, disposition and treatment plan as described except to the extent set forth below. Ms. Garcia is a 62 year old female with history of COPD, hypertension, kidney cancer, hyperlipidemia, CAD status post angioplasty 2, chronic pain who presents to [facility] from [facility] due to chest pain. Her troponin peaked at 1.45. She happened to have JEFF , which resolved with IV hydration. She denied any active CP now. Her HR and BP better today.. Had LHC y/ d.. which showed moderate disease in RCA, no interventions, other than medical management. Gen: A, A< O x3 Chest: Diminished BS b/l . No wheezing, no rales Heart: S1S2+ RRR a/p 1. Acute NSTEMI 2. Acute CP s/p LHC moderate disease cont ASA, Statin 3. Sinus bradycardia 4. Hypotension resolved Held BB due to bradycardiac episodes 5. JEFF Resolved Medically stable to d/c home today
[2018-08-27] MEDS: Aspirin Enteric Coated 81 MG Tablet PO SCH (08:37)
[2018-08-27] MEDS: amLODIPine 5 MG TABLET PO SCH (08:37)
[2018-08-27] MEDS: Isosorbide MONOnitrate (24 HR) 30 MG TAB.ER.24H PO SCH (08:37)
[2018-08-27] MEDS: Budesonide/Formoterol 160/4.5 1 PUFF INH IH SCH (08:55)
[2018-08-27] MEDS ORDERED: Sennosides/Docusate Sodium TABLET PO SCH (10:00)
[2018-08-27 11:10] VITALS: BP 146/103
== END 2018-08-27 13:43 | disposition home or self-care (01) | DRG 280 ==
LOC: ICNU 21:08 → INTOOBSV 21:08 → 2NENU 23:44 → SUATTDRO 08-24 09:50
PROVIDERS: ADMIT Internal Medicine; ATTEND Family Medicine

== ENCOUNTER 2021-08-14 17:22 | Observation (INO) ==
[2021-08-14 21:34] LABS: Influenza A PCR Negative (Negative); Influenza B PCR Negative (Negative); Resp. Syncytial Virus PCR Negative (Negative)
[2021-08-14 21:36] LABS: SARS-CoV-2 by PCR (In House) Negative (Negative)
[2021-08-14] MEDS ORDERED: Perflutren Lipid Microsphere 1.3 ML in 0.9 % Sodium Chloride 8.7 ML IVP PRN (22:29)
[2021-08-14] MEDS ORDERED: Acetaminophen 325 MG TABLET PO PRN (22:38)
[2021-08-14] MEDS ORDERED: Naloxone 0.4 MG/ML INJ IVP PRN (22:38)
[2021-08-15 02:57] LABS: Hematocrit 38.4 % (35.3-44.9); Hemoglobin 12.2 g/dL (11.5-15.4); Mean Corpuscular HGB Conc 31.8 g/dL (31.6-35.5); Mean Corpuscular Hemoglobin 29.2 pg (28.0-33.3); Mean Corpuscular Volume 91.9 fL (83.0-100.0); Mean Platelet Volume 12.1 fL (9.4-12.4); Platelet Count 232 K/mcL (140-400); Red Blood Count 4.18 M/mcL (3.82-4.97); Red Cell Distribution Width 14.6 % (11.5-14.5); White Blood Count 10.5 K/mcL (4.3-11.1)
[2021-08-15 03:02] LABS: Calcium 8.1 mg/dL (8.6-10.3); Chol/HDL Ratio 4.6 (0-4.9); Potassium 4.5 mEq/L (3.5-5.1)
[2021-08-15 03:36] LABS: Thyroid Stimulating Hormone 2.638 mcIU/mL (0.340-5.600)
[2021-08-15 03:55] LABS: Estimated Average Glucose 111 mg/dl; Hemoglobin A1C 5.5 %
[2021-08-15 04:34] LABS: Folate 17.3 ng/mL (3.0-16.0)
[2021-08-15] MEDS ORDERED: *HR* OxyCODONE/APAP 5/325 TABLET PO ONE (05:57)
[2021-08-15 07:22] LABS: Prothrombin Time 11.6 Seconds (9.4-12.1)
[2021-08-15 07:25] LABS: Activated Partial Thrombo Time 34.7 Seconds (26.0-36.0)
[2021-08-15] MEDS ORDERED: Aspirin Enteric Coated 81 MG Tablet PO SCH (09:00)
[2021-08-15] MEDS ORDERED: Cyanocobalamin (B-12) 1,000 MCG/ML VIAL SQ ONE (09:06)
[2021-08-15] MEDS ORDERED: 0.9 % Sodium Chloride 1,000 ML IVC SCH (09:15)
[2021-08-15 10:19] VITALS: PULSE 73; TEMP 98.1; O2SAT 95
[2021-08-15] MEDS ORDERED: *HR* OxyCODONE/APAP 10/325 TABLET PO PRN ×2 (12:16→12:19)
[2021-08-15] MEDS ORDERED: Ipratropium/Albuterol Neb 3 ML IH PRN (12:16)
[2021-08-15] MEDS ORDERED: amLODIPine 5 MG TABLET PO PRN (12:16)
[2021-08-15] MEDS ORDERED: diazePAM 10 MG TABLET PO SCH ×2 (12:30)
[2021-08-15] MEDS ORDERED: Tiotropium 10 INH DOSE IH SCH (12:30)
[2021-08-15 13:15] VITALS: BP 103/62
[2021-08-15] MEDS ORDERED: Gabapentin 300 MG CAPSULE PO SCH (15:00)
[2021-08-16] MEDS ORDERED: Budesonide/Formoterol 80/4.5 1 PUFF INH IH SCH (10:00)
== END 2021-08-15 14:24 | disposition home or self-care (01) ==
LOC: 3BNU → SUATTDRO 19:06
PROVIDERS: ADMIT Internal Medicine; ATTEND Internal Medicine